=== PATIENT | female | born 1990 | race Caucasian/White ===

== ENCOUNTER 2018-06-04 14:56 | Emergency (ER) | payer OTHER ==
[~2018-06-04] VITALS: Ht 157.5 cm; Wt 56.7 kg
[2018-06-04 15:56] VITALS: BP 106/62
--- NOTE | 2018-06-04 16:17 | PHYS DOC ---
Past Medical History Past Medical History: No Pertinent History, Anxiety, Other Additional Past Medical Histor: " I am a cutter" , ptsd Past Surgical History: No Surgical History Alcohol Use: Occasionally Drug Use: Marijuana, Other Adult General Chief Complaint Chief Complaint: FOREIGN BODY VAGINA HPI HPI Patient is a 27 year old female with history of anxiety who presents today complaining of possible tampon stuck in the vagina. Patient states she placed the tampon in her vagina around 4 AM this morning. She states she woke up after that and removed a tampon string from her vagina but is not sure if she removed the entire tampon or not. Patient denies any other symptoms. Review of Systems Review of Systems Constitutional: Denies fever or chills [] GI: Possible tampon in the vagina. Denies abdominal pain, nausea, vomiting, bloody stools or diarrhea [] : Denies dysuria or hematuria [] Musculoskeletal: Denies back pain or joint pain [] Integument: Denies rash or skin lesions [] Neurologic: Denies headache, focal weakness or sensory changes [] All other systems were reviewed and found to be within normal limits, except as documented in this note. Allergies Allergies Allergies Coded Allergies Type Severity Reaction Last Updated Verified No Known Drug Allergies 10/07/13 No Physical Exam Physical Exam Constitutional: Well developed, well nourished, no acute distress, non-toxic appearance. [] Abdomen: Bowel sounds normal, soft, no tenderness, no masses, no pulsatile masses. [] Pelvic exam External pelvic appears normal, no foreign object noted in the vaginal vault, cervix wasn't visualized. No CMT. No adnexal tenderness, small amount of brownish drainage in the vaginal vault consistent with spotting. Patient states her menstrual cycle is supposed to start today Skin: Warm, dry, no erythema, no rash. [] Back: No tenderness, no CVA tenderness. [] Extremities: No tenderness, no cyanosis, no clubbing, ROM intact, no edema. [] Neurologic: Alert and oriented X 3, normal motor function, normal sensory function, no focal deficits noted. [] Psychologic: Affect normal, judgement normal, mood normal. [] Current Patient Data Vital Signs Vital Signs Date Time Temp Pulse Resp B/P (MAP) Pulse Ox O2 Delivery O2 Flow Rate FiO2 06/04/18 15:56 98.1 97 18 106/62 (77) 99 Room Air 98.1 EKG EKG [] Radiology/Procedures Radiology/Procedures [] Course & Med Decision Making Course & Med Decision Making Pertinent Labs and Imaging studies reviewed. (See chart for details) This is a 27-year-old female patient presented to the ED today concerned she could've left her tampon in her vagina. On physical exam no obvious tampon was noted. Patient is on her menstrual cycle. She was discharged to home. Instructed to follow-up with her own PCP or CARDIAC NURSE as needed. Dragon Disclaimer Dragon Disclaimer This electronic medical record was generated, in whole or in part, using a voice recognition dictation system. Departure Departure Impression: Primary Impression: Vaginal foreign body Disposition: HOME, SELF-CARE Condition: STABLE Referrals: NON,STAFF (PCP) LORI CAMPOS MD Follow-up in 1-2 weeks. Patient Instructions: Vaginal Foreign Body-Brief Additional Instructions: You were evaluated in the emergency room, we could not find any tampon in your vagina. You are currently no your menstrual cycle. Follow-up with your own doctor or CARDIAC NURSE as needed. Come back to the ED for any concerns. Problem Qualifiers Primary Impression: Vaginal foreign body Encounter type: initial encounter Qualified Codes: T19.2XXA - Foreign body in vulva and vagina, initial encounter HERNESTO PERES CLINICAL REIMBURSEMENT SPECIALIST Jun 04, 2018 16:17
== END 2018-06-04 16:38 | disposition home or self-care (01) ==
LOC: ER 14:56
DX: T19.2XXA Foreign body in vulva and vagina, initial encounter (principal); F43.10 Post-traumatic stress disorder, unspecified; X58.XXXA Exposure to other specified factors, initial encounter; Y93.89 Activity, other specified; Y92.89 Other specified places as the place of occurrence of the external cause; Y99.8 Other external cause status
CPT/HCPCS: 99283

== ENCOUNTER 2020-08-20 13:00 | Inpatient (IN) | payer MEDICAID, OTHER ==
[~2020-08-20] VITALS: Ht 154.9 cm; Wt 56.1 kg
[2020-08-20] MEDS ORDERED: IV NORMAL SALINE 1000ML BAG 1,000 ML IV SCH (13:30)
--- NOTE | 2020-08-20 13:41 | PHYS DOC ---
Past Medical History Past Medical History: Anxiety, Depression Past Surgical History: Other Additional Past Surgical Histo: D&C Smoking Status: Current Every Day Smoker Additional Information: 2-3 cigarettes daily Alcohol Use: None Drug Use: None General Adult EDM: Chief Complaint: MULTIPLE COMPLAINTS HPI: HPI: Patient is a 30 year old Female who presents with 1 week of sore throat but 2 d ays of generalized weakness, nasal congestion, nausea and chills. States she was around somebody who had Covid recently. She also complains of a rash to her rectum area that is been there for couple months. Patient has a history of anxiety, depression, 2 to 3 cigarettes, marijuana, D&C. Review of Systems: Review of Systems: Constitutional: + fever or chills. [] Eyes: Denies change in visual acuity. [] HENT: + nasal congestion or +sore throat. [] Respiratory: + cough or denies shortness of breath. [] Cardiovascular: +chest tightness, Denies chest pain or edema. [] GI: Denies abdominal pain, +nausea, +dry heaving , denies vomiting, bloody stools or diarrhea. [] : Denies dysuria. [] Musculoskeletal: Denies back pain or joint pain. +Generalized weakness[] Integument: +anal rash. [] Neurologic: Denies headache, focal weakness or sensory changes. [] Endocrine: Denies polyuria or polydipsia. [] Lymphatic: Denies swollen glands. [] Psychiatric: Denies depression or anxiety. [] Heart Score: Risk Factors: Risk Factors: DM, Current or recent (<one month) smoker, HTN, HLP, family history of CAD, obesity. Risk Scores: Score 0 - 3: 2.5% MACE over next 6 weeks - Discharge Home Score 4 - 6: 20.3% MACE over next 6 weeks - Admit for Clinical Observation Score 7 - 10: 72.7% MACE over next 6 weeks - Early Invasive Strategies Current Medications: Current Medications Medications (Trade) Dose Ordered Sig/Yash Start Time Stop Time Status Last Admin Dose Admin Sodium Chloride 1,000 ml @ 1,000 mls/hr Q1H 08/20/20 13:30 08/20/20 14:29 UNV Allergies: Allergies: Allergies Coded Allergies Type Severity Reaction Last Updated Verified No Known Drug Allergies 08/20/20 No Physical Exam: PE: Constitutional: Well developed, well nourished, no acute distress, non-toxic appearance. [] HENT: Normocephalic, atraumatic, bilateral external ears normal, oropharynx moist, no oral exudates, nose normal. [] Eyes: PERRLA, EOMI, conjunctiva normal, no discharge. [] Neck: Normal range of motion, no tenderness, supple, no stridor. [] Cardiovascular:Heart rate regular rhythm, no murmur [] Lungs & Thorax: Bilateral upper breath sounds clear and lower diminished to auscultation [] Abdomen: Bowel sounds normal, soft, no tenderness, no masses, no pulsatile masses. [] Skin: Warm, dry, no erythema, no rash. Anal warts[] Back: No tenderness, no CVA tenderness. [] Extremities: No tenderness, no cyanosis, no clubbing, ROM intact, no edema. [] Neurologic: Alert and oriented X 3, normal motor function, normal sensory function, no focal deficits noted. [] Psychologic: Affect normal, judgement normal, mood normal. [] Current Patient Data: Vital Signs: Vital Signs Date Time Temp Pulse Resp B/P (MAP) Pulse Ox O2 Delivery O2 Flow Rate FiO2 08/20/20 13:22 98.1 133 24 103/76 (85 100 Room Air 98.1 EKG: EK and read by Dr. Peraza as sinus tachycardia no STEMI [] Radiology/Procedures: Radiology/Procedures: [] Impression: [facility] [address] [place], [place] [id number] IMAGING REPORT Signed PATIENT: RAJI DE LOS SANTOS ACCOUNT: [id number] : 1990 LOCATION: ER AGE: 30 SEX: F EXAM STATUS: REG ER ORD. PHYSICIAN: RELL TILLMAN APRN REASON: PUI, COUGH, TACHYCARDIC, SOA PROCEDURE: PORTABLE CHEST 1V EXAM: Chest, single view. HISTORY: Cough. Tachycardia. COMPARISON: None. FINDINGS: A frontal view of the chest is obtained. There is no infiltrate, pleural effusion or pneumothorax. The heart is normal in size. IMPRESSION: No acute pulmonary finding. Electronically signed by: Demetra Cho MD (08/20/2020 2:01 PM) [facility] DICTATED and SIGNED BY: DEMETRA CHO MD DATE: 08/20/20 [id number] 0 Course & Med Decision Making: Course & Med Decision Making Pertinent Labs and Imaging studies reviewed. (See chart for details) COVID-19 CRITERIA: The patient was evaluated during the global COVID-19 pandemic, and that diagnosis was suspected/considered upon their initial presentation. Their evaluation, treatment and testing was consistent with current guidelines for patients who present with complaints or symptoms that may be related to COVID-19. See HPI. Patient's heart rate is 135 sinus tach. That she is afebrile. Patient states that she has had a couple bottles of water today. Lungs are clear in upper lobes and diminished in lower lobes. Speaks in full clear sentences. Patient has moderate anal warts bilaterally and around the anus. She states they are itchy and she sometimes has pain with having a bowel movement. She denies any blood in her stool. Patient denies abdominal pain, chest pain but she does have chest tightness, shortness of breath, headache, vision changes, numbness or tingling, abdominal pain, vomiting, diarrhea. UTI, sepsis, possible ovarian hemorrhage. She has been given Zosyn, 2 L of NS fluid. Patient admitted to Dr. Koroma. [] Emil Disclaimer: Emil Disclaimer: This electronic medical record was generated, in whole or in part, using a voice recognition dictation system. Date and Time of Reassessment Date: Aug 20, 2020 Time: 16:16 Fluid Challenge Is the fluid challenge complet: No IBW Target Volume Used: No BMI > 30: No Vital Signs Vital Signs: Vital Signs Date Time Temp Pulse Resp B/P (MAP) Pulse Ox O2 Delivery O2 Flow Rate FiO2 08/20/20 15:30 121 16 109/70 (83) 100 Room Air 08/20/20 13:22 98.1 98.1 Temperature Source: Oral Respirations Respiratory Effort: Normal Respiratory Pattern: Normal Cardiovascular Pulse Rhythm: Regular Heart: Nml rate, reg. rhythm Lung Sounds Breath Sounds: Clear Capillary Refil Capillary Refill: Rt Hand < 3 seconds Peripheral Pulse Pulse Location: Radial Pulse Strength: Normal (2+) Pulse Assessment Method: Monitor Integumentary Skin: Warm Skin Moisture: Dry Skin Turgor: Normal Skin Color: warm Fingernail Color: WNL COVID-19 Patient Risks: Age 65 or older: No Sign of co-morbidity: Yes Exp to person + for COVID: Yes Exp to PUI: No Travel from affected area: No Lower respiratory symptoms: Yes Fever: No Other: No PPE Use: Full PPE with N95 mask or PAPR: Yes Departure Departure Impression: Primary Impression: Person under investigation for COVID-19 Additional Impressions: Sepsis Qualified Codes: A41.9 - Sepsis, unspecified organism; R65.20 - Severe sepsis without septic shock UTI (urinary tract infection) Qualified Codes: N30.00 - Acute cystitis without hematuria Disposition: 09 ADMITTED INPT THIS HOSP Admitting Physician: KATHRYN Condition: STABLE Referrals: NO PCP (PCP) RELL TILLMAN APRN Aug 20, 2020 13:40
--- NOTE | 2020-08-20 14:07 | RAD ---
EXAM: Chest, single view. HISTORY: Cough. Tachycardia. COMPARISON: None. FINDINGS: A frontal view of the chest is obtained. There is no infiltrate, pleural effusion or pneumo thorax. The heart is normal in size. IMPRESSION: No acute pulmonary finding. Electronically signed by: Demetra Heath MD (08/20/2020 2:01 PM) [facility]
[2020-08-20 14:34] LABS: BASO % 0 % (0-3); EOS % 0 % (0-3); HEMATOCRIT 33.8 % (36.0-47.0); HEMOGLOBIN 10.9 g/dL (12.0-15.5); LYMPH # 0.5 x10^3/uL (1.0-4.8); LYMPH % 2 % (24-48); MEAN CORPUSCULAR HEMOGLOBIN 24 pg (25-35); MEAN CORPUSCULAR HGB CONC 32 g/dL (31-37); MEAN CORPUSCULAR VOLUME 75 fL (79-100); MONO # 0.4 x10^3/uL (0.0-1.1); MONO % 2 % (0-9); NEUT # 19.5 x10^3/uL (1.8-7.7); NEUT % 95 % (31-73); PLATELET COUNT 385 x10^3/uL (140-400); RED CELL DISTRIBUTION WIDTH 16.9 % (11.5-14.5); WHITE BLOOD COUNT 20.4 x10^3/uL (4.0-11.0)
[2020-08-20 14:36] LABS: BILIRUBIN,URINE NEGATIVE (NEG); CLARITY,URINE CLEAR; COLOR,URINE YELLOW; NITRITE,URINE POSITIVE (NEG); PROTEIN,URINE NEGATIVE (NEG-TRACE); UROBILINOGEN,URINE 0.2 mg/dL (0.2 mg/dL)
[2020-08-20 14:47] LABS: BACTERIA,URINE MANY /HPF (0-FEW); RBC,URINE 0 /HPF (0-2)
[2020-08-20 14:51] LABS: CREATININE 0.7 mg/dL (0.6-1.0); GFR 97.6; POTASSIUM 3.5 mmol/L (3.5-5.1)
[2020-08-20 14:57] LABS: ALBUMIN 3.5 g/dL (3.4-5.0); ALBUMIN/GLOBULIN RATIO 0.7 (1.0-1.7); TOTAL BILIRUBIN 1.1 mg/dL (0.2-1.0); TOTAL PROTEIN 8.2 g/dL (6.4-8.2)
[2020-08-20] MEDS ORDERED: IV NORMAL SALINE 1000ML BAG 1,000 ML IV ONE (15:00)
[2020-08-20] MEDS ORDERED: IOHEXOL 300 MG/ML 100ML VIAL. IV ONE (15:15)
[2020-08-20] MEDS ORDERED: CONTRAST GIVEN. MC PRN ×2 (15:15→16:15)
[2020-08-20] MEDS ORDERED: PIPERACILLIN/TAZOBACTAM 3.375 GM in IV NORMAL SALINE 50ML 50 ML IV ONE (15:30)
[2020-08-20 15:41] LABS: % BANDS 39 % (0-9); % LYMPHS 4 % (24-48); % MONOS 4 % (0-10); % MYELOS 1 % (0-0); % SEGS 52 % (35-66); ANISOCYTOSIS SLIGHT; HYPOCHROMIA SLIGHT; PLT ESTIMATE ADEQUATE (ADEQUATE); TOXIC VACUOLATION SLIGHT
[2020-08-20] MEDS ORDERED: IOHEXOL 350 MG/ML 100 ML VIAL. IV ONE (16:15)
--- NOTE | 2020-08-20 16:29 | RAD ---
EXAM: CT angiography of the chest, abdomen and pelvis with intravenous contrast. HISTORY: Pain. Fever and vomiting. TECHNIQUE: Computed tomographic images of the chest, abdomen and pelvis were obtained following the a dministration of intravenous contrast according to angiography protocol. Multiplanar reformatting was performed and three dimensional maximum intensity projection images were obtained. *One or more of the following individualized dose reduction techniques were utilized for this examina tion: 1. Automated exposure control. 2. Adjustment of the mA and/or kV according to patient size. 3. Use of iterative reconstruction technique. COMPARISON: None. FINDINGS: Chest: The heart is normal in size. The aorta is normal in caliber. There is no aortic diss ection. There is no pulmonary embolism. There is soft tissue within the anterior mediastinum due to r esidual thymus. There are prominent bilateral axillary lymph nodes. There are prominent bilateral hil ar lymph nodes. There is no pneumothorax or pleural effusion. There is no infiltrate or suspicious pu lmonary nodule. There is minimal peripheral atelectasis. There is no acute or suspicious osseous find ing. There is a severe chronic compression fracture of T8. Abdomen and pelvis: There is mild periportal edema, a finding which can be seen with rapid bolus ramila ent hydration. The gallbladder, pancreas, spleen, adrenal glands and stomach are unremarkable. There are small simple appearing renal cysts. There is no hydronephrosis. There is no appendicitis. There i s no bowel obstruction. There is no abnormal bowel wall thickening. The bladder is unremarkable. The uterus is unremarkable. There is a moderate amount of pelvic free fluid, the attenuation of which is greater than simple fluid and likely due to a component of hemorrhage. There is a 1.5 cm peripherally enhancing right ovarian follicular cyst, likely an involuting cyst. The superimposed on multiple nohemy ateral ovarian follicles. IMPRESSION: 1. Moderate pelvic free fluid, the attenuation of which is greater than simple fluid and likely due t o a component of hemorrhage. There is a suspected involuting 1.5 cm right ovarian follicular cyst. Th e possibility of a ruptured hemorrhagic cyst is not excluded. This can be better assessed with pelvic sonography. 2. Small simple appearing renal cysts. Follow up is not routinely recommended for simple cysts. Electronically signed by: Demetra Heath MD (08/20/2020 4:25 PM) [facility]
--- NOTE | 2020-08-20 18:00 | RAD ---
EXAM: Pelvic sonogram. HISTORY: Pelvic free fluid. Possible ruptured cyst. TECHNIQUE: Transabdominal sonographic imaging of the pelvis was performed. COMPARISON: CT obtained on the same date. FINDINGS: The uterus measures 8.0 x 5.4 x 4.3 cm. The endometrial stripe measures 7 mm. The left ovar y measures 4.9 x 3.8 x 3.4 cm. The right ovary measures 3.0 x 2.1 x 2.4 cm. There is a 4.2 cm left ov michelle cyst. There is moderate pelvic free fluid. IMPRESSION: 1. 4.2 cm left ovarian cyst. 2. Moderate pelvic free fluid. Electronically signed by: Demetra Heath MD (08/20/2020 5:46 PM) [facility]
--- NOTE | 2020-08-20 19:30 | HP ---
ADMIT DATE: 08/20/2020 CHIEF COMPLAINT: Sore throat, weakness, congestion, possible COVID exposure. 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 Basically, she has been having flu-like symptoms for the past several days. When we evaluated her here in the ER, it appears she has a UTI with sepsis. She has a white count of 20,000. Her urine is dirty. I discussed the case with the ER physician. We are going to admit the patient and treat her with IV antibiotics, IV fluids, consult Infectious Disease and rule out COVID-19. PAST MEDICAL HISTORY: Anxiety, depression, D and C, tobacco abuse. ALLERGIES: None. FAMILY HISTORY: Diabetes. SOCIAL HISTORY: She smokes a few cigarettes a day. 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 She does not drink or take drugs. MEDICATIONS: Reviewed, please refer to the MRAD. REVIEW OF SYSTEMS: GENERAL: She complains of weakness, she complains of chills. SKIN: No bruising, hair changes or rashes. EYES: No blurred, double or loss of vision. NOSE AND THROAT: She complains of nasal congestion. HEART: No history of palpitations, chest pain or shortness of breath on exertion. LUNGS: Denies cough, hemoptysis, wheezing or shortness of breath. GASTROINTESTINAL: She complains of nausea. GENITOURINARY: No history of frequency, urgency, hesitancy or nocturia. NEUROLOGIC: Denies history of numbness, tingling, tremor or weakness. PSYCHIATRIC: No history of panic, anxiety or depression. ENDOCRINE: No history of heat or cold intolerance, polyuria or polydipsia. EXTREMITIES: Denies muscle weakness, joint pain, pain on walking or stiffness. PHYSICAL EXAMINATION: VITAL SIGNS: Temperature is 98.1, pulse 130, respirations 24, blood pressure 103/76, O2 sats 100% on room air limits. GENERAL: No apparent distress. Alert and oriented. HEENT: Normal cephalic atraumatic, external auditory canals are patent. EYES: Extraocular muscles are intact, pupils are equally round and reactive to light and accommodation. MUSCULOSKELETAL: Well developed, well nourished, good range of motion. ENDOCRINE: No thyromegaly was palpated. LYMPHATICS: No cervical chain or axillary nodes were noted. HEMATOPOIETIC: No bruising. NECK: Supple, no JVD, no thyromegaly was noted. LUNGS: Clear to auscultation in all lung connolly without rhonchi or wheezing. HEART: RRR, S1, S2 present. Peripheral pulses intact, no obvious murmurs were noted. ABDOMEN: Soft, nontender. Positive bowel sounds no organomegaly, normal bowel sounds. EXTREMITIES: Without any cyanosis, clubbing, or edema. Pedal pulses intact, Homans sign is negative. NEUROLOGIC: Normal speech, normal tone. A & O x 3, moves all extremities, no obvious focal deficits. PSYCHIATRIC: Normal affect, normal mood. Stable. SKIN: No bruising, she has multiple skin lesions. She states this is chronic for her. VASCULAR: Good capillary refill, neurovascular bundle appears to be intact. LABORATORY DATA: White count is 20, hemoglobin 11, platelets 385. Electrolytes: Sodium 135. The other electrolytes are normal. D-dimer is high at 3.85. Urinalysis shows moderate leukocyte esterase and 1-4 white cells. IMAGING: Chest x-ray, no acute findings. CT of the abdomen and pelvis, 4.2 cm left ovarian cyst and moderate pelvic fluid. Also, there was moderate pelvic free fluid, the attenuation of which is greater than simple fluid and is likely due to a component of hemorrhage. ASSESSMENT AND PLAN: Sepsis, urinary tract infection, abnormal CT imaging of the abdomen and pelvis, leukocytosis, coagulopathy with a high D-dimer, anemia, hyponatremia. The patient will be admitted. We will start IV antibiotics. Consult Infectious Disease. Consult CLEAN UP SUPERVISOR. Trend labs. Rule out COVID-19. IV Zosyn, IV normal saline. Blood cultures. We have a Rapid Strep pending. Respiratory isolation until her COVID test comes back negative. ADARSH AGUILERA DO DR: LISA/sybil JOB#: [id number] / [id number]
[2020-08-20 20:30] VITALS: BP 112/74
[2020-08-20] MEDS ORDERED: diphenhydrAMINE HCL 25 MG CAPSULE PO PRN (21:45)
[2020-08-20] MEDS: ZOLPIDEM 5 MG TABLET. PO PRN (22:08)
[2020-08-20 23:59] VITALS: BP 109/55
[2020-08-21 03:14] VITALS: BP 103/50
--- NOTE | 2020-08-21 04:06 | EKG ---
[facility] [address] [place] [address] Test Date: 2020-08-20 Test Time: 13:13:06 Pat Name: RAJI DE LOS SANTOS Department: Room: [facility] Gender: F Car Trimmer: : 1990 Requested By: RELL TILLMAN Order Number: [id number] Reading MD: Neto Lloyd Measurements Intervals [place] Rate: 137 P: 22 FL: 98 QRS: 48 QRSD: 66 T: 39 QT: 284 QTc: 430 Interpretive Statements SINUS TACHYCARDIA Electronically Signed On 08-30-2020 14:43:40 [employer] by Neto Lloyd
[2020-08-21] MEDS ORDERED: VITS A & D/LANOLIN TOPICAL OINTMENT 42GM TUBE. TP PRN (05:00)
[2020-08-21 07:00] VITALS: BP 131/63
[2020-08-21] MEDS ORDERED: PIP/TAZO PER PHARMACY MC PRN (07:15)
--- NOTE | 2020-08-21 07:35 | PDOC ---
Infectious Disease Note Vital Sign Vital Signs Vital Signs Date Time Temp Pulse Resp B/P (MAP) Pulse Ox O2 Delivery O2 Flow Rate FiO2 08/21/20 03:14 97.9 105 18 103/50 (67) 98 Room Air 97.9 Labs Lab Laboratory Tests Test 08/20/20 13:29 08/20/20 14:10 08/20/20 14:20 Coronavirus (PCR) Not detected (Not Detected) Group A Streptococcus Rapid Negative (NEGATIVE) White Blood Count 20.4 x10^3/uL (4.0-11.0) Red Blood Count 4.50 x10^6/uL (3.50-5.40) Hemoglobin 10.9 g/dL (12.0-15.5) Hematocrit 33.8 % (36.0-47.0) Mean Corpuscular Volume 75 fL (79-100) Mean Corpuscular Hemoglobin 24 pg (25-35) Mean Corpuscular Hemoglobin Concent 32 g/dL (31-37) Red Cell Distribution Width 16.9 % (11.5-14.5) Platelet Count 385 x10^3/uL (140-400) Neutrophils (%) (Auto) 95 % (31-73) Lymphocytes (%) (Auto) 2 % (24-48) Monocytes (%) (Auto) 2 % (0-9) Eosinophils (%) (Auto) 0 % (0-3) Basophils (%) (Auto) 0 % (0-3) Neutrophils # (Auto) 19.5 x10^3/uL (1.8-7.7) Lymphocytes # (Auto) 0.5 x10^3/uL (1.0-4.8) Monocytes # (Auto) 0.4 x10^3/uL (0.0-1.1) Eosinophils # (Auto) 0.0 x10^3/uL (0.0-0.7) Basophils # (Auto) 0.0 x10^3/uL (0.0-0.2) Segmented Neutrophils % 52 % (35-66) Band Neutrophils % 39 % (0-9) Lymphocytes % 4 % (24-48) Monocytes % 4 % (0-10) Myelocytes % 1 % (0-0) Toxic Vacuolation Slight Platelet Estimate Adequate (ADEQUATE) Hypochromasia Slight Anisocytosis Slight D-Dimer (Maryam) 3.85 ug/mlFEU (0.00-0.50) Urine Collection Type Unknown Urine Color Yellow Urine Clarity Clear Urine pH 6.0 (<5.0-8.0) Urine Specific [place] 1.010 (1.000-1.030) Urine Protein Negative mg/dL (NEG-TRACE) Urine Glucose (UA) Negative mg/dL (NEG) Urine Ketones (Stick) Negative mg/dL (NEG) Urine Blood Negative (NEG) Urine Nitrite Positive (NEG) Urine Bilirubin Negative (NEG) Urine Urobilinogen Dipstick 0.2 mg/dL (0.2 mg/dL) Urine Leukocyte Esterase Moderate (NEG) Urine RBC 0 /HPF (0-2) Urine WBC 1-4 /HPF (0-4) Urine Squamous Epithelial Cells Mod /LPF Urine Bacteria Many /HPF (0-FEW) Urine Mucus Mod /LPF Sodium Level 135 mmol/L (136-145) Potassium Level 3.5 mmol/L (3.5-5.1) Chloride Level 103 mmol/L (98-107) Carbon Dioxide Level 22 mmol/L (21-32) Anion Gap 10 (6-14) Blood Urea Nitrogen 10 mg/dL (7-20) Creatinine 0.7 mg/dL (0.6-1.0) Estimated GFR (Cockcroft-Gault) 97.6 BUN/Creatinine Ratio 14 (6-20) Glucose Level 91 mg/dL (70-99) Calcium Level 9.0 mg/dL (8.5-10.1) Total Bilirubin 1.1 mg/dL (0.2-1.0) Aspartate Amino Transf (AST/SGOT) 22 U/L (15-37) Alanine Aminotransferase (ALT/SGPT) 19 U/L (14-59) Alkaline Phosphatase 76 U/L (46-116) Troponin I Quantitative < 0.017 ng/mL (0.000-0.055) Total Protein 8.2 g/dL (6.4-8.2) Albumin 3.5 g/dL (3.4-5.0) Albumin/Globulin Ratio 0.7 (1.0-1.7) Bedside Urine HCG, Qualitative Hcg negative (Negative) Objective Assessment leukocytosis Free pelvic fluid ? HPV lesions on rectal area - states has had HPV vaccine sore throat Plan Plan of Care GC Probe/syphilis/cbc CMp this am Cont zosyn Add Doxy Await DATA WAREHOUSING MANAGER eval F/u cults Consider HIV test based on above D/w nursing # [id number] EDDI MORALES MD Aug 21, 2020 07:35
[2020-08-21] MEDS ORDERED: INFLUENZA VAX SCREEN BY RX. MC PRN (09:00)
[2020-08-21] MEDS ORDERED: FLU VACC QS 2020-21(6MOS+)/PF 0.5 ML SYRINGE. VAX IM ONE (09:00)
[2020-08-21] MEDS: DOXYCYCLINE HYCLATE 100 MG TABLET PO SCH ×2 (09:28→19:21)
[2020-08-21] MEDS: PIPERACILLIN/TAZOBACTAM 3.375 GM in IV NORMAL SALINE 50ML 50 ML IV SCH ×3 (09:46→17:52)
[2020-08-21 11:00] VITALS: BP 113/59
--- NOTE | 2020-08-21 11:09 | PDOC ---
PROGRESS NOTES Date of Service: DATE: 08/21/20 TIME: 11:06 Chief Complaint Chief Complaint ASSESSMENT AND PLAN: Sepsis, urinary tract infection, abnormal CT imaging of the abdomen and pelvis, leukocytosis, coagulopathy with a high D-dimer, anemia, hyponatremia. 4.2 cm left ovarian cyst. Moderate pelvic free fluid, the attenuation of which is greater than simple fluid and likely due to a component of hemorrhage. There is a suspected involuting 1.5 cm right ovarian follicular cyst. The possibility of a ruptured hemorrhagic cyst GC Probe/syphilis/cbc comp 08-21 Cont iv zosyn Add Doxy APPEALS RN eval HIV test PLAN admitted. IV antibiotics. Consult Infectious Disease. Consult PROJECT CONTROL MANAGER. , PATRICK-ANAL CONDYLOMA Trend labs. Rule out COVID-19. IV Zosyn, IV normal saline. Blood cultures. Rapid Strep pending. Respiratory isolation History of Present Illness History of Present Illness CHIEF COMPLAINT: Sore throat, weakness, congestion, possible COVID exposure. 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 she has been having flu-like symptoms for the past several days. appears she has a UTI with sepsis. She has a white count of 20,000. PYURIA NOTED. admit IV antibiotics, IV fluids, consult Infectious Disease PUI rule out COVID-19. PAST MEDICAL HISTORY: Anxiety, depression, D and C, tobacco abuse. ALLERGIES: None. FAMILY HISTORY: Diabetes. SOCIAL HISTORY: She smokes a few cigarettes a day. 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 She does not drink or take drugs. MEDICATIONS: Reviewed, please refer to the MRAD. REVIEW OF SYSTEMS: GENERAL: She complains of weakness, she complains of chills. SKIN: No bruising, hair changes or rashes. EYES: No blurred, double or loss of vision. NOSE AND THROAT: She complains of nasal congestion. HEART: No history of palpitations, chest pain or shortness of breath on exertion. LUNGS: Denies cough, hemoptysis, wheezing or shortness of breath. GASTROINTESTINAL: She complains of nausea. RECTAL PAIN GENITOURINARY: No history of frequency, urgency, hesitancy or nocturia. NEUROLOGIC: Denies history of numbness, tingling, tremor or weakness. PSYCHIATRIC: No history of panic, anxiety or depression. ENDOCRINE: No history of heat or cold intolerance, polyuria or polydipsia. EXTREMITIES: Denies muscle weakness, joint pain, pain on walking or stiffness. Vitals Vitals Vital Signs Date Time Temp Pulse Resp B/P (MAP) Pulse Ox O2 Delivery O2 Flow Rate FiO2 08/21/20 08:30 Room Air 08/21/20 07:00 97.0 116 14 131/63 (85) 99 97.0 Physical Exam Physical Exam GENERAL: No apparent distress. Alert and oriented. HEENT: Normal cephalic atraumatic, external auditory canals are patent. EYES: Extraocular muscles are intact, pupils are equally round and reactive to light and accommodation. MUSCULOSKELETAL: Well developed, well nourished, good range of motion. ENDOCRINE: No thyromegaly was palpated. LYMPHATICS: No cervical chain or axillary nodes were noted. HEMATOPOIETIC: No bruising. NECK: Supple, no JVD, no thyromegaly was noted. LUNGS: Clear to auscultation in all lung connolly without rhonchi or wheezing. HEART: RRR, S1, S2 present. Peripheral pulses intact, no obvious murmurs were noted. ABDOMEN: Soft, nontender. Positive bowel sounds no organomegaly, normal bowel sounds. EXTREMITIES: Without any cyanosis, clubbing, or edema. Pedal pulses intact, Homans sign is negative. NEUROLOGIC: Normal speech, normal tone. A & O x 3, moves all extremities, no obvious focal deficits. PSYCHIATRIC: Normal affect, normal mood. Stable. SKIN: No bruising, she has multiple skin lesions. She states this is chronic for her. VASCULAR: Good capillary refill, neurovascular bundle appears to be intact. General: Alert, Oriented X3, Cooperative, No acute distress Heart: Regular rate Lungs: Clear Abdomen: No tenderness Extremities: No cyanosis Labs LABS EXAM: Pelvic sonogram. HISTORY: Pelvic free fluid. Possible ruptured cyst. TECHNIQUE: Transabdominal sonographic imaging of the pelvis was performed. COMPARISON: CT obtained on the same date. FINDINGS: The uterus measures 8.0 x 5.4 x 4.3 cm. The endometrial stripe measures 7 mm. The left ovary measures 4.9 x 3.8 x 3.4 cm. The right ovary measures 3.0 x 2.1 x 2.4 cm. There is a 4.2 cm left ovarian cyst. There is moderate pelvic free fluid. IMPRESSION: 1. 4.2 cm left ovarian cyst. 2. Moderate pelvic free fluid. Electronically signed by: Demetra Heath MD (08/20/2020 5:46 PM) [facility] EXAM: CT angiography of the chest, abdomen and pelvis with intravenous contrast. HISTORY: Pain. Fever and vomiting. TECHNIQUE: Computed tomographic images of the chest, abdomen and pelvis were obtained following the administration of intravenous contrast according to angiography protocol. Multiplanar reformatting was performed and three dimensional maximum intensity projection images were obtained. *One or more of the following individualized dose reduction techniques were utilized for this examination: 1. Automated exposure control. 2. Adjustment of the mA and/or kV according to patient size. 3. Use of iterative reconstruction technique. COMPARISON: None. FINDINGS: Chest: The heart is normal in size. The aorta is normal in caliber. There is no aortic dissection. There is no pulmonary embolism. There is soft tissue within the anterior mediastinum due to residual thymus. There are prominent bilateral axillary lymph nodes. There are prominent bilateral hilar lymph nodes. There is no pneumothorax or pleural effusion. There is no infiltrate or suspicious pulmonary nodule. There is minimal peripheral atelectasis. There is no acute or suspicious osseous finding. There is a severe chronic compression fracture of T8. Abdomen and pelvis: There is mild periportal edema, a finding which can be seen with rapid bolus patient hydration. The gallbladder, pancreas, spleen, adrenal glands and stomach are unremarkable. There are small simple appearing renal cyst s. There is no hydronephrosis. There is no appendicitis. There is no bowel obstruction. There is no abnormal bowel wall thickening. The bladder is unremarkable. The uterus is unremarkable. There is a moderate amount of pelvic free fluid, the attenuation of which is greater than simple fluid and likely due to a component of hemorrhage. There is a 1.5 cm peripherally enhancing right ovarian follicular cyst, likely an involuting cyst. The superimposed on multiple bilateral ovarian follicles. IMPRESSION: 1. Moderate pelvic free fluid, the attenuation of which is greater than simple fluid and likely due to a component of hemorrhage. There is a suspected involuting 1.5 cm right ovarian follicular cyst. The possibility of a ruptured hemorrhagic cyst is not excluded. This can be better assessed with pelvic sonography. 2. Small simple appearing renal cysts. Follow up is not routinely recommended for simple cysts. Electronically signed by: Demetra Heath MD (08/20/2020 4:25 PM) [facility] DICTATED and SIGNED BY: DEMETRA HEATH MD Laboratory Tests Test 08/20/20 13:29 08/20/20 14:10 08/20/20 14:20 Coronavirus (PCR) Not detected (Not Detected) Group A Streptococcus Rapid Negative (NEGATIVE) White Blood Count 20.4 x10^3/uL (4.0-11.0) Red Blood Count 4.50 x10^6/uL (3.50-5.40) Hemoglobin 10.9 g/dL (12.0-15.5) Hematocrit 33.8 % (36.0-47.0) Mean Corpuscular Volume 75 fL (79-100) Mean Corpuscular Hemoglobin 24 pg (25-35) Mean Corpuscular Hemoglobin Concent 32 g/dL (31-37) Red Cell Distribution Width 16.9 % (11.5-14.5) Platelet Count 385 x10^3/uL (140-400) Neutrophils (%) (Auto) 95 % (31-73) Lymphocytes (%) (Auto) 2 % (24-48) Monocytes (%) (Auto) 2 % (0-9) Eosinophils (%) (Auto) 0 % (0-3) Basophils (%) (Auto) 0 % (0-3) Neutrophils # (Auto) 19.5 x10^3/uL (1.8-7.7) Lymphocytes # (Auto) 0.5 x10^3/uL (1.0-4.8) Monocytes # (Auto) 0.4 x10^3/uL (0.0-1.1) Eosinophils # (Auto) 0.0 x10^3/uL (0.0-0.7) Basophils # (Auto) 0.0 x10^3/uL (0.0-0.2) Segmented Neutrophils % 52 % (35-66) Band Neutrophils % 39 % (0-9) Lymphocytes % 4 % (24-48) Monocytes % 4 % (0-10) Myelocytes % 1 % (0-0) Toxic Vacuolation Slight Platelet Estimate Adequate (ADEQUATE) Hypochromasia Slight Anisocytosis Slight D-Dimer (Maryam) 3.85 ug/mlFEU (0.00-0.50) Urine Collection Type Unknown Urine Color Yellow Urine Clarity Clear Urine pH 6.0 (<5.0-8.0) Urine Specific [place] 1.010 (1.000-1.030) Urine Protein Negative mg/dL (NEG-TRACE) Urine Glucose (UA) Negative mg/dL (NEG) Urine Ketones (Stick) Negative mg/dL (NEG) Urine Blood Negative (NEG) Urine Nitrite Positive (NEG) Urine Bilirubin Negative (NEG) Urine Urobilinogen Dipstick 0.2 mg/dL (0.2 mg/dL) Urine Leukocyte Esterase Moderate (NEG) Urine RBC 0 /HPF (0-2) Urine WBC 1-4 /HPF (0-4) Urine Squamous Epithelial Cells Mod /LPF Urine Bacteria Many /HPF (0-FEW) Urine Mucus Mod /LPF Sodium Level 135 mmol/L (136-145) Potassium Level 3.5 mmol/L (3.5-5.1) Chloride Level 103 mmol/L (98-107) Carbon Dioxide Level 22 mmol/L (21-32) Anion Gap 10 (6-14) Blood Urea Nitrogen 10 mg/dL (7-20) Creatinine 0.7 mg/dL (0.6-1.0) Estimated GFR (Cockcroft-Gault) 97.6 BUN/Creatinine Ratio 14 (6-20) Glucose Level 91 mg/dL (70-99) Calcium Level 9.0 mg/dL (8.5-10.1) Total Bilirubin 1.1 mg/dL (0.2-1.0) Aspartate Amino Transf (AST/SGOT) 22 U/L (15-37) Alanine Aminotransferase (ALT/SGPT) 19 U/L (14-59) Alkaline Phosphatase 76 U/L (46-116) Troponin I Quantitative < 0.017 ng/mL (0.000-0.055) Total Protein 8.2 g/dL (6.4-8.2) Albumin 3.5 g/dL (3.4-5.0) Albumin/Globulin Ratio 0.7 (1.0-1.7) Bedside Urine HCG, Qualitative Hcg negative (Negative) Assessment and Plan Assessmemt and Plan Problems Medical Problems: (1) Person under investigation for COVID-19 Status: Acute (2) Sepsis Status: Acute (3) UTI (urinary tract infection) Status: Acute Comment Review of Relevant I have reviewed the following items nell (where applicable) has been applied. Labs Laboratory Tests Test 08/20/20 13:29 08/20/20 14:10 08/20/20 14:20 Coronavirus (PCR) Not detected (Not Detected) Group A Streptococcus Rapid Negative (NEGATIVE) White Blood Count 20.4 x10^3/uL (4.0-11.0) Red Blood Count 4.50 x10^6/uL (3.50-5.40) Hemoglobin 10.9 g/dL (12.0-15.5) Hematocrit 33.8 % (36.0-47.0) Mean Corpuscular Volume 75 fL (79-100) Mean Corpuscular Hemoglobin 24 pg (25-35) Mean Corpuscular Hemoglobin Concent 32 g/dL (31-37) Red Cell Distribution Width 16.9 % (11.5-14.5) Platelet Count 385 x10^3/uL (140-400) Neutrophils (%) (Auto) 95 % (31-73) Lymphocytes (%) (Auto) 2 % (24-48) Monocytes (%) (Auto) 2 % (0-9) Eosinophils (%) (Auto) 0 % (0-3) Basophils (%) (Auto) 0 % (0-3) Neutrophils # (Auto) 19.5 x10^3/uL (1.8-7.7) Lymphocytes # (Auto) 0.5 x10^3/uL (1.0-4.8) Monocytes # (Auto) 0.4 x10^3/uL (0.0-1.1) Eosinophils # (Auto) 0.0 x10^3/uL (0.0-0.7) Basophils # (Auto) 0.0 x10^3/uL (0.0-0.2) Segmented Neutrophils % 52 % (35-66) Band Neutrophils % 39 % (0-9) Lymphocytes % 4 % (24-48) Monocytes % 4 % (0-10) Myelocytes % 1 % (0-0) Toxic Vacuolation Slight Platelet Estimate Adequate (ADEQUATE) Hypochromasia Slight Anisocytosis Slight D-Dimer (Maryam) 3.85 ug/mlFEU (0.00-0.50) Urine Collection Type Unknown Urine Color Yellow Urine Clarity Clear Urine pH 6.0 (<5.0-8.0) Urine Specific [place] 1.010 (1.000-1.030) Urine Protein Negative mg/dL (NEG-TRACE) Urine Glucose (UA) Negative mg/dL (NEG) Urine Ketones (Stick) Negative mg/dL (NEG) Urine Blood Negative (NEG) Urine Nitrite Positive (NEG) Urine Bilirubin Negative (NEG) Urine Urobilinogen Dipstick 0.2 mg/dL (0.2 mg/dL) Urine Leukocyte Esterase Moderate (NEG) Urine RBC 0 /HPF (0-2) Urine WBC 1-4 /HPF (0-4) Urine Squamous Epithelial Cells Mod /LPF Urine Bacteria Many /HPF (0-FEW) Urine Mucus Mod /LPF Sodium Level 135 mmol/L (136-145) Potassium Level 3.5 mmol/L (3.5-5.1) Chloride Level 103 mmol/L (98-107) Carbon Dioxide Level 22 mmol/L (21-32) Anion Gap 10 (6-14) Blood Urea Nitrogen 10 mg/dL (7-20) Creatinine 0.7 mg/dL (0.6-1.0) Estimated GFR (Cockcroft-Gault) 97.6 BUN/Creatinine Ratio 14 (6-20) Glucose Level 91 mg/dL (70-99) Calcium Level 9.0 mg/dL (8.5-10.1) Total Bilirubin 1.1 mg/dL (0.2-1.0) Aspartate Amino Transf (AST/SGOT) 22 U/L (15-37) Alanine Aminotransferase (ALT/SGPT) 19 U/L (14-59) Alkaline Phosphatase 76 U/L (46-116) Troponin I Quantitative < 0.017 ng/mL (0.000-0.055) Total Protein 8.2 g/dL (6.4-8.2) Albumin 3.5 g/dL (3.4-5.0) Albumin/Globulin Ratio 0.7 (1.0-1.7) Bedside Urine HCG, Qualitative Hcg negative (Negative) Laboratory Tests Test 08/20/20 13:29 08/20/20 14:10 08/20/20 14:20 Coronavirus (PCR) Not detected (Not Detected) Group A Streptococcus Rapid Negative (NEGATIVE) White Blood Count 20.4 x10^3/uL (4.0-11.0) Red Blood Count 4.50 x10^6/uL (3.50-5.40) Hemoglobin 10.9 g/dL (12.0-15.5) Hematocrit 33.8 % (36.0-47.0) Mean Corpuscular Volume 75 fL (79-100) Mean Corpuscular Hemoglobin 24 pg (25-35) Mean Corpuscular Hemoglobin Concent 32 g/dL (31-37) Red Cell Distribution Width 16.9 % (11.5-14.5) Platelet Count 385 x10^3/uL (140-400) Neutrophils (%) (Auto) 95 % (31-73) Lymphocytes (%) (Auto) 2 % (24-48) Monocytes (%) (Auto) 2 % (0-9) Eosinophils (%) (Auto) 0 % (0-3) Basophils (%) (Auto) 0 % (0-3) Neutrophils # (Auto) 19.5 x10^3/uL (1.8-7.7) Lymphocytes # (Auto) 0.5 x10^3/uL (1.0-4.8) Monocytes # (Auto) 0.4 x10^3/uL (0.0-1.1) Eosinophils # (Auto) 0.0 x10^3/uL (0.0-0.7) Basophils # (Auto) 0.0 x10^3/uL (0.0-0.2) Segmented Neutrophils % 52 % (35-66) Band Neutrophils % 39 % (0-9) Lymphocytes % 4 % (24-48) Monocytes % 4 % (0-10) Myelocytes % 1 % (0-0) Toxic Vacuolation Slight Platelet Estimate Adequate (ADEQUATE) Hypochromasia Slight Anisocytosis Slight D-Dimer (Maryam) 3.85 ug/mlFEU (0.00-0.50) Urine Collection Type Unknown Urine Color Yellow Urine Clarity Clear Urine pH 6.0 (<5.0-8.0) Urine Specific [place] 1.010 (1.000-1.030) Urine Protein Negative mg/dL (NEG-TRACE) Urine Glucose (UA) Negative mg/dL (NEG) Urine Ketones (Stick) Negative mg/dL (NEG) Urine Blood Negative (NEG) Urine Nitrite Positive (NEG) Urine Bilirubin Negative (NEG) Urine Urobilinogen Dipstick 0.2 mg/dL (0.2 mg/dL) Urine Leukocyte Esterase Moderate (NEG) Urine RBC 0 /HPF (0-2) Urine WBC 1-4 /HPF (0-4) Urine Squamous Epithelial Cells Mod /LPF Urine Bacteria Many /HPF (0-FEW) Urine Mucus Mod /LPF Sodium Level 135 mmol/L (136-145) Potassium Level 3.5 mmol/L (3.5-5.1) Chloride Level 103 mmol/L (98-107) Carbon Dioxide Level 22 mmol/L (21-32) Anion Gap 10 (6-14) Blood Urea Nitrogen 10 mg/dL (7-20) Creatinine 0.7 mg/dL (0.6-1.0) Estimated GFR (Cockcroft-Gault) 97.6 BUN/Creatinine Ratio 14 (6-20) Glucose Level 91 mg/dL (70-99) Calcium Level 9.0 mg/dL (8.5-10.1) Total Bilirubin 1.1 mg/dL (0.2-1.0) Aspartate Amino Transf (AST/SGOT) 22 U/L (15-37) Alanine Aminotransferase (ALT/SGPT) 19 U/L (14-59) Alkaline Phosphatase 76 U/L (46-116) Troponin I Quantitative < 0.017 ng/mL (0.000-0.055) Total Protein 8.2 g/dL (6.4-8.2) Albumin 3.5 g/dL (3.4-5.0) Albumin/Globulin Ratio 0.7 (1.0-1.7) Bedside Urine HCG, Qualitative Hcg negative (Negative) Medications Current Medications Sodium Chloride 1,000 ml @ 1,000 mls/hr Q1H IV Last administered on 08/20/20at 14:15; Start 08/20/20 at 13:30; Stop 08/20/20 at 14:29; Status DC Sodium Chloride 1,000 ml @ 1,000 mls/hr 1X ONCE IV Last administered on 08/20/20at 15:26; Start 08/20/20 at 15:00; Stop 08/20/20 at 15:59; Status DC Iohexol (Omnipaque 300 Mg/ml) 75 ml 1X ONCE IV ; Start 08/20/20 at 15:15; Stop 08/20/20 at 15:16; Status DC Info (CONTRAST GIVEN -- Rx MONITORING) 1 each PRN DAILY PRN MC SEE COMMENTS; Start 08/20/20 at 15:15; Stop 08/22/20 at 15:14 Piperacillin Sod/ Tazobactam Sod 3.375 gm/Sodium Chloride 50 ml @ 100 mls/hr 1X ONCE IV Last administered on 08/20/20at 15:29; Start 08/20/20 at 15:30; Stop 08/20/20 at 15:59; Status DC Iohexol (Omnipaque 350 Mg/ml) 75 ml 1X ONCE IV Last administered on 08/20/20at 16:16; Start 08/20/20 at 16:15; Stop 08/20/20 at 16:16; Status DC Info (CONTRAST GIVEN -- Rx MONITORING) 1 each PRN DAILY PRN MC SEE COMMENTS; Start 08/20/20 at 16:15; Stop 08/22/20 at 16:14 Zolpidem Tartrate (Ambien) 5 mg PRN QHS PRN PO INSOMNIA, MAY REPEAT X1 Last administered on 08/20/20at 22:08; Start 08/20/20 at 21:45 Diphenhydramine HCl (Benadryl) 25 mg PRN Q6HRS PRN PO ITCHING; Start 08/20/20 at 21:45 Vitamin A/Vitamin D (Vitamin A & D Ointment) 1 kemal PRN Q1HR PRN TP SKIN PROTECTION Last administered on 08/21/20at 05:08; Start 08/21/20 at 05:00 Influenza Virus Vaccine Quadrival (Fluzone Quad Syringe) 0.5 ml ONCE ONCE VAX IM Last administered on 08/21/20at 09:47; Start 08/21/20 at 09:00; Stop 08/21/20 at 09:01; Status DC Info (FLU VACCINE SCREEN per RX) 1 each PRN 1X PRN MC SEE COMMENTS; Start 08/21/20 at 09:00; Status UNV Doxycycline Hyclate (Vibra-Tab) 100 mg BID PO Last administered on 08/21/20at 09:28; Start 08/21/20 at 09:00 Piperacillin Sod/ Tazobactam Sod (Zosyn Per Pharmacy) 1 each PRN DAILY PRN MC SEE COMMENTS; Start 08/21/20 at 07:15 Piperacillin Sod/ Tazobactam Sod 3.375 gm/Sodium Chloride 50 ml @ 100 mls/hr Q6HRS IV Last administered on 08/21/20at 09:46; Start 08/21/20 at 08:00 Vitals/I & O Vital Sign - Last 24 Hours 08/20/20 08/20/20 08/20/20 08/20/20 13:17 13:22 14:02 14:32 Temp 98.1 98.1 Pulse 128 133 124 124 Resp 24 B/P (MAP) 103/76 (85) 103/76 (85) 116/74 (88) 116/77 (90) Pulse Ox 98 100 98 98 O2 Delivery Room Air Room Air Room Air Room Air 08/20/20 08/20/20 08/20/20 08/20/20 15:02 15:22 15:30 16:07 Pulse 120 114 121 122 Resp 16 B/P (MAP) 110/72 (85) 111/67 (82) 109/70 (83) 113/66 (82) Pulse Ox 100 100 100 96 O2 Delivery Room Air Room Air Room Air Room Air 08/20/20 08/20/20 08/20/20 08/20/20 17:15 18:15 20:30 20:30 Temp 98.5 98.5 Pulse 114 107 110 Resp 18 B/P (MAP) 106/63 (77) 115/69 (84) 112/74 (87) Pulse Ox 96 100 100 O2 Delivery Room Air Room Air Room Air Room Air 08/20/20 08/21/20 08/21/20 08/21/20 23:59 03:14 07:00 08:30 Temp 98.3 97.9 97.0 98.3 97.9 97.0 Pulse 110 105 116 Resp 20 18 14 B/P (MAP) 109/55 (73) 103/50 (67) 131/63 (85) Pulse Ox 98 98 99 O2 Delivery Room Air Room Air Room Air Room Air Intake and Output 08/20/20 08/20/20 08/21/20 15:00 23:00 07:00 Intake Total 2050 ml 120 ml Balance 2050 ml 120 ml Justicifation of Admission Dx: Justifications for Admission: Justification of Admission Dx: No Comments: RUPTURED OVARIAN CYST, CONDYLOMA CARL WEAVER MD Aug 21, 2020 11:09
--- NOTE | 2020-08-21 11:12 | CONS ---
DATE OF CONSULTATION: 08/21/2020 LOCATION: The patient is in room 668. REQUESTING PHYSICIAN: Dr. Koroma. REASON FOR CONSULTATION: Questionable sepsis. HISTORY OF PRESENT ILLNESS: The patient is a 30-year-old female without significant past medical history who [place], near [place], who came to the [place] 2 days ago to visit. She has a history of some anxiety and depression. Yesterday, she states she was in the bathroom, had sudden onset of feeling faint. She had nausea and she felt like she was having fevers and some chills. She has had a sore throat for a week and only took some ibuprofen and presented to [facility] Emergency Room. She has not been febrile. Blood pressures have been stable. Urinalysis was collected. It looks like it is contaminated specimen. White count was 20, but she had 39% bands. Her COVID test is negative. Group A strep was negative. She underwent a chest x-ray, which showed no acute pulmonary findings. A chest, abdomen and pelvis CT showed moderate pelvic free fluid attenuation of which is greater, simple fluid, likely due to compartment of hemorrhage, suspecting right ovarian follicular cysts. She then underwent a transvaginal ultrasound showed a 4.2 cm left ovarian cyst and moderate pelvic free fluid. She was given a dose of Zosyn and admitted to the hospital. Currently, she is lying in bed. She is feeling somewhat better. No gross headaches, has occasional cough. She denies any dysuria, no frequency. Denies any abnormal vaginal discharge, but was concerned about a potential yeast infection at some point and also states she has had some abnormal lesions around her rectal area. PAST MEDICAL HISTORY: Positive for anxiety, depression, D and C, tobacco abuse, history of gonorrhea at age 21. States she has had the HPV vaccine. REVIEW OF SYSTEMS: Otherwise negative. ALLERGIES: No known drug allergies. SOCIAL HISTORY: She is a smoker. 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 She does use marijuana. She does not use any other substances. She has a dog at home and has been with the same partner for the past 6 months, but she is sexually active. FAMILY HISTORY: Positive for diabetes. CURRENT MEDICATIONS: Include Zosyn x 1, Benadryl, flu shot. Other meds are available and reviewed in the chart. PHYSICAL EXAMINATION: VITAL SIGNS: She is afebrile, temperature 97.9, pulse 105, respiratory rate 18, blood pressure 103/50, satting 98% on room air. CONSTITUTIONAL: She is lying down. She is comfortable. She is in no acute distress. She was sleeping on arrival. HEENT: Pupils equal and reactive. She has normal conjunctivae. Oral cavity, pharynx was clear. No signs of thrush or erythema. NECK: Supple. Good range of motion. LUNGS: Clear to auscultation bilaterally. HEART: S1, S2. ABDOMEN: Soft, flat, nondistended. EXTREMITIES: Without clubbing, cyanosis or gross edema. GENITOURINARY: Vaginal area without significant swelling. There is no gross drainage about her rectal area. She has got circumferential plaque-like lesions around her anal area. NEUROLOGIC: She is nonfocal, moves all extremities. SKIN: Without generalized signs of rash. She does have some scabs scattered throughout. NEUROLOGIC: She is nonfocal, moves all extremities. PSYCHIATRIC: Affect is appropriate. LABORATORY VALUES: White count 20.4, hemoglobin 10.9, platelets of 385 with 39 bands, 52 segs. Creatinine 0.7. Normal liver function study tests, although her total bilirubin was mildly elevated at 1.1. Urinalysis again looks consistent with contamination. RADIOLOGY: Reviewed in history of present illness. IMPRESSION: 1. Leukocytosis. 2. Free pelvic fluid. 3. Questionable HPV lesions on rectal area. States she had a HPV vaccine. 4. Sore throat. RECOMMENDATIONS: We will check a GC probe, also check syphilis, CBC, CMP this morning. Continue Zosyn, add doxycycline, await RESEARCH AND DEVELOPMENT CHEMIST evaluation. We will follow up on cultures. Consider HIV test based on above. This was discussed with nursing. Thank you for the patient's care. Should you have any questions, please do not hesitate to contact me. EDDI MORALES MD DR: EMIGDIO/sybil JOB#: [id number] / [id number] RUSSELL
[2020-08-21 11:31] LABS: BASO # 0.1 x10^3/uL (0.0-0.2); BASO % 0 % (0-3); EOS # 0.3 x10^3/uL (0.0-0.7); EOS % 2 % (0-3); HEMATOCRIT 31.2 % (36.0-47.0); LYMPH # 1.8 x10^3/uL (1.0-4.8); LYMPH % 11 % (24-48); MEAN CORPUSCULAR HEMOGLOBIN 24 pg (25-35); MEAN CORPUSCULAR HGB CONC 32 g/dL (31-37); MEAN CORPUSCULAR VOLUME 75 fL (79-100); MONO # 0.7 x10^3/uL (0.0-1.1); MONO % 4 % (0-9); NEUT # 13.3 x10^3/uL (1.8-7.7); NEUT % 83 % (31-73); PLATELET COUNT 364 x10^3/uL (140-400); RED BLOOD COUNT 4.13 x10^6/uL (3.50-5.40); RED CELL DISTRIBUTION WIDTH 17.1 % (11.5-14.5); WHITE BLOOD COUNT 16.2 x10^3/uL (4.0-11.0)
[2020-08-21 11:50] LABS: ALBUMIN 3.4 g/dL (3.4-5.0); ALBUMIN/GLOBULIN RATIO 0.7 (1.0-1.7); CALCIUM 8.9 mg/dL (8.5-10.1); CREATININE 0.7 mg/dL (0.6-1.0); GFR 97.6; POTASSIUM 3.7 mmol/L (3.5-5.1); TOTAL BILIRUBIN 0.6 mg/dL (0.2-1.0); TOTAL PROTEIN 8.3 g/dL (6.4-8.2)
--- NOTE | 2020-08-21 13:04 | PDOC2 ---
CONSULT Date of Consult Date of Consult DATE: 08/21/20 TIME: 12:58 Reason for Consult Reason for Consult: Ovarian cyst Referring Physician Referring Physician: Dr. Koroma Identification/Chief Complaint Chief Complaint lower abd cramping and perineal pain Source Source: Chart review, Patient History of Present Illness Reason for Visit: 30 y/o presented with lower abd pain, dysuria and perineal pain for past couple days. She was admitted for complicated UTI and ovarian cyst. Pelvic sono indicated ruptured hemorrhagic cyst and PERICO cyst 4 cm size. Hgb is stable and patient abd pain resolved. Past Surgical History Past Surgical History: Other (D&C) Current Problem List Problem List Problems Medical Problems: (1) Person under investigation for COVID-19 Status: Acute (2) Sepsis Status: Acute (3) UTI (urinary tract infection) Status: Acute Current Medications Current Medications Current Medications Sodium Chloride 1,000 ml @ 1,000 mls/hr Q1H IV Last administered on 08/20/20at 14:15; Start 08/20/20 at 13:30; Stop 08/20/20 at 14:29; Status DC Sodium Chloride 1,000 ml @ 1,000 mls/hr 1X ONCE IV Last administered on 08/20/20at 15:26; Start 08/20/20 at 15:00; Stop 08/20/20 at 15:59; Status DC Iohexol (Omnipaque 300 Mg/ml) 75 ml 1X ONCE IV ; Start 08/20/20 at 15:15; Stop 08/20/20 at 15:16; Status DC Info (CONTRAST GIVEN -- Rx MONITORING) 1 each PRN DAILY PRN MC SEE COMMENTS; Start 08/20/20 at 15:15; Stop 08/22/20 at 15:14 Piperacillin Sod/ Tazobactam Sod 3.375 gm/Sodium Chloride 50 ml @ 100 mls/hr 1X ONCE IV Last administered on 08/20/20at 15:29; Start 08/20/20 at 15:30; Stop 08/20/20 at 15:59; Status DC Iohexol (Omnipaque 350 Mg/ml) 75 ml 1X ONCE IV Last administered on 08/20/20at 16:16; Start 08/20/20 at 16:15; Stop 08/20/20 at 16:16; Status DC Info (CONTRAST GIVEN -- Rx MONITORING) 1 each PRN DAILY PRN MC SEE COMMENTS; Start 08/20/20 at 16:15; Stop 08/22/20 at 16:14 Zolpidem Tartrate (Ambien) 5 mg PRN QHS PRN PO INSOMNIA, MAY REPEAT X1 Last administered on 08/20/20at 22:08; Start 08/20/20 at 21:45 Diphenhydramine HCl (Benadryl) 25 mg PRN Q6HRS PRN PO ITCHING; Start 08/20/20 at 21:45 Vitamin A/Vitamin D (Vitamin A & D Ointment) 1 kemal PRN Q1HR PRN TP SKIN PROTECTION Last administered on 08/21/20at 05:08; Start 08/21/20 at 05:00 Influenza Virus Vaccine Quadrival (Fluzone Quad Syringe) 0.5 ml ONCE ONCE VAX IM Last administered on 08/21/20at 09:47; Start 08/21/20 at 09:00; Stop 08/21/20 at 09:01; Status DC Info (FLU VACCINE SCREEN per RX) 1 each PRN 1X PRN MC SEE COMMENTS; Start 08/21/20 at 09:00; Status UNV Doxycycline Hyclate (Vibra-Tab) 100 mg BID PO Last administered on 08/21/20at 09:28; Start 08/21/20 at 09:00 Piperacillin Sod/ Tazobactam Sod (Zosyn Per Pharmacy) 1 each PRN DAILY PRN MC SEE COMMENTS; Start 08/21/20 at 07:15 Piperacillin Sod/ Tazobactam Sod 3.375 gm/Sodium Chloride 50 ml @ 100 mls/hr Q6HRS IV Last administered on 08/21/20at 12:38; Start 08/21/20 at 08:00 Allergies Allergies: Coded Allergies: No Known Drug Allergies (Unverified , 08/20/20) ROS General: No: Chills, Night Sweats, Fatigue, Malaise, Appetite, Other PSYCHOLOGICAL ROS: YES: Anxiety; No: Behavioral Disorder, Concentration difficultie, Decreased libido, Depression, Disorientation, Hallucinations, Hostility, Irritablity, Memory difficulties, Mood Swings, Obsessive thoughts, Physical abuse, Sexual abuse, Sleep disturbances, Suicidal ideation, Other Eyes: No Blurry vision, No Decreased vision, No Double vision, No Dry eyes, No Excessive tearing, No Eye Pain, No Itchy Eyes, No Loss of vision, No Photophobia, No Scotomata, No Uses contacts, No Uses glasses, No Other HEENT: No: Heacaches, Visual Changes, Hearing change, Nasal congestion, Nasal discharge, Oral lesions, Sinus pain, Sore Throat, Epistaxis, Sneezing, Snoring, Tinnitus, Vertigo, Vocal changes, Other ALLERGY AND IMMUNOLOGY: No: Hives, Insect Bite Sensitivity, Itchy/Watery Eyes, Nasal Congestion, Post Nasal Drip, Seasonal Allergies, Other Hematological and Lymphatic: No: Bleeding Problems, Blood Clots, Blood Transf usions, Brusing, Night Sweats, Pallor, Swollen Lymph Nodes, Other ENDOCRINE: No: Breast Changes, Galactorrhea, Hair Pattern Changes, Hot Flashes, Malaise/lethargy, Mood Swings, Palpitations, Polydipsia/polyuria, Skin Changes, Temperature Intolerance, Unexpected Weight Changes, Other Respiratory: No: Cough, Hemoptysis, Orthopnea, Pleuritic Pain, Shortness of breath, SOB with excertion, Sputum Changes, Stridor, Tachypnea, Wheezing, Other Cardiovascular: No Chest Pain, No Palpitations, No Orthopnea, No Paroxysmal Noc. Dyspnea, No Edema, No Lt Headedness, No Other Gastrointestinal: No Nausea, No Vomiting, No Abdominal Pain, No Diarrhea, No Constipation, No Melena, No Hematochezia, No Other Genitourinary: YES Other (vulvar irritation from wiping after voiding) Physical Exam General: Alert, Oriented X3, Cooperative HEENT: Atraumatic Lungs: Clear to auscultation Heart: Regular rate Abdomen: Normal bowel sounds, Soft, No tenderness, No masses, Other (no rebound tenderness or gaurding.) Extremities: No edema Skin: Other (HPV condyloma perianal area) Neuro: Normal gait Psych/Mental Status: Mental status NL Vitals VITALS Vital Signs Date Time Temp Pulse Resp B/P (MAP) Pulse Ox O2 Delivery O2 Flow Rate FiO2 08/21/20 11:00 98.2 86 16 113/59 (77) 100 Room Air 98.2 Labs Labs Laboratory Tests Test 08/20/20 13:29 08/20/20 14:10 08/20/20 14:20 08/21/20 11:19 Coronavirus (PCR) Not detected (Not Detected) Group A Streptococcus Rapid Negative (NEGATIVE) White Blood Count 20.4 x10^3/uL (4.0-11.0) 16.2 x10^3/uL (4.0-11.0) Red Blood Count 4.50 x10^6/uL (3.50-5.40) 4.13 x10^6/uL (3.50-5.40) Hemoglobin 10.9 g/dL (12.0-15.5) 10.0 g/dL (12.0-15.5) Hematocrit 33.8 % (36.0-47.0) 31.2 % (36.0-47.0) Mean Corpuscular Volume 75 fL (79-100) 75 fL (79-100) Mean Corpuscular Hemoglobin 24 pg (25-35) 24 pg (25-35) Mean Corpuscular Hemoglobin Concent 32 g/dL (31-37) 32 g/dL (31-37) Red Cell Distribution Width 16.9 % (11.5-14.5) 17.1 % (11.5-14.5) Platelet Count 385 x10^3/uL (140-400) 364 x10^3/uL (140-400) Neutrophils (%) (Auto) 95 % (31-73) 83 % (31-73) Lymphocytes (%) (Auto) 2 % (24-48) 11 % (24-48) Monocytes (%) (Auto) 2 % (0-9) 4 % (0-9) Eosinophils (%) (Auto) 0 % (0-3) 2 % (0-3) Basophils (%) (Auto) 0 % (0-3) 0 % (0-3) Neutrophils # (Auto) 19.5 x10^3/uL (1.8-7.7) 13.3 x10^3/uL (1.8-7.7) Lymphocytes # (Auto) 0.5 x10^3/uL (1.0-4.8) 1.8 x10^3/uL (1.0-4.8) Monocytes # (Auto) 0.4 x10^3/uL (0.0-1.1) 0.7 x10^3/uL (0.0-1.1) Eosinophils # (Auto) 0.0 x10^3/uL (0.0-0.7) 0.3 x10^3/uL (0.0-0.7) Basophils # (Auto) 0.0 x10^3/uL (0.0-0.2) 0.1 x10^3/uL (0.0-0.2) Segmented Neutrophils % 52 % (35-66) Band Neutrophils % 39 % (0-9) Lymphocytes % 4 % (24-48) Monocytes % 4 % (0-10) Myelocytes % 1 % (0-0) Toxic Vacuolation Slight Platelet Estimate Adequate (ADEQUATE) Hypochromasia Slight Anisocytosis Slight D-Dimer (Maryam) 3.85 ug/mlFEU (0.00-0.50) Urine Collection Type Unknown Urine Color Yellow Urine Clarity Clear Urine pH 6.0 (<5.0-8.0) Urine Specific [place] 1.010 (1.000-1.030) Urine Protein Negative mg/dL (NEG-TRACE) Urine Glucose (UA) Negative mg/dL (NEG) Urine Ketones (Stick) Negative mg/dL (NEG) Urine Blood Negative (NEG) Urine Nitrite Positive (NEG) Urine Bilirubin Negative (NEG) Urine Urobilinogen Dipstick 0.2 mg/dL (0.2 mg/dL) Urine Leukocyte Esterase Moderate (NEG) Urine RBC 0 /HPF (0-2) Urine WBC 1-4 /HPF (0-4) Urine Squamous Epithelial Cells Mod /LPF Urine Bacteria Many /HPF (0-FEW) Urine Mucus Mod /LPF Sodium Level 135 mmol/L (136-145) 140 mmol/L (136-145) Potassium Level 3.5 mmol/L (3.5-5.1) 3.7 mmol/L (3.5-5.1) Chloride Level 103 mmol/L (98-107) 106 mmol/L (98-107) Carbon Dioxide Level 22 mmol/L (21-32) 23 mmol/L (21-32) Anion Gap 10 (6-14) 11 (6-14) Blood Urea Nitrogen 10 mg/dL (7-20) 8 mg/dL (7-20) Creatinine 0.7 mg/dL (0.6-1.0) 0.7 mg/dL (0.6-1.0) Estimated GFR (Cockcroft-Gault) 97.6 97.6 BUN/Creatinine Ratio 14 (6-20) 11 (6-20) Glucose Level 91 mg/dL (70-99) 87 mg/dL (70-99) Calcium Level 9.0 mg/dL (8.5-10.1) 8.9 mg/dL (8.5-10.1) Total Bilirubin 1.1 mg/dL (0.2-1.0) 0.6 mg/dL (0.2-1.0) Aspartate Amino Transf (AST/SGOT) 22 U/L (15-37) 17 U/L (15-37) Alanine Aminotransferase (ALT/SGPT) 19 U/L (14-59) 14 U/L (14-59) Alkaline Phosphatase 76 U/L (46-116) 69 U/L (46-116) Troponin I Quantitative < 0.017 ng/mL (0.000-0.055) Total Protein 8.2 g/dL (6.4-8.2) 8.3 g/dL (6.4-8.2) Albumin 3.5 g/dL (3.4-5.0) 3.4 g/dL (3.4-5.0) Albumin/Globulin Ratio 0.7 (1.0-1.7) 0.7 (1.0-1.7) Bedside Urine HCG, Qualitative Hcg negative (Negative) Treponema pallidum Antibody Reactive (Nonreactive) Laboratory Tests Test 08/20/20 13:29 08/20/20 14:10 08/20/20 14:20 08/21/20 11:19 Coronavirus (PCR) Not detected (Not Detected) Group A Streptococcus Rapid Negative (NEGATIVE) White Blood Count 20.4 x10^3/uL (4.0-11.0) 16.2 x10^3/uL (4.0-11.0) Red Blood Count 4.50 x10^6/uL (3.50-5.40) 4.13 x10^6/uL (3.50-5.40) Hemoglobin 10.9 g/dL (12.0-15.5) 10.0 g/dL (12.0-15.5) Hematocrit 33.8 % (36.0-47.0) 31.2 % (36.0-47.0) Mean Corpuscular Volume 75 fL (79-100) 75 fL (79-100) Mean Corpuscular Hemoglobin 24 pg (25-35) 24 pg (25-35) Mean Corpuscular Hemoglobin Concent 32 g/dL (31-37) 32 g/dL (31-37) Red Cell Distribution Width 16.9 % (11.5-14.5) 17.1 % (11.5-14.5) Platelet Count 385 x10^3/uL (140-400) 364 x10^3/uL (140-400) Neutrophils (%) (Auto) 95 % (31-73) 83 % (31-73) Lymphocytes (%) (Auto) 2 % (24-48) 11 % (24-48) Monocytes (%) (Auto) 2 % (0-9) 4 % (0-9) Eosinophils (%) (Auto) 0 % (0-3) 2 % (0-3) Basophils (%) (Auto) 0 % (0-3) 0 % (0-3) Neutrophils # (Auto) 19.5 x10^3/uL (1.8-7.7) 13.3 x10^3/uL (1.8-7.7) Lymphocytes # (Auto) 0.5 x10^3/uL (1.0-4.8) 1.8 x10^3/uL (1.0-4.8) Monocytes # (Auto) 0.4 x10^3/uL (0.0-1.1) 0.7 x10^3/uL (0.0-1.1) Eosinophils # (Auto) 0.0 x10^3/uL (0.0-0.7) 0.3 x10^3/uL (0.0-0.7) Basophils # (Auto) 0.0 x10^3/uL (0.0-0.2) 0.1 x10^3/uL (0.0-0.2) Segmented Neutrophils % 52 % (35-66) Band Neutrophils % 39 % (0-9) Lymphocytes % 4 % (24-48) Monocytes % 4 % (0-10) Myelocytes % 1 % (0-0) Toxic Vacuolation Slight Platelet Estimate Adequate (ADEQUATE) Hypochromasia Slight Anisocytosis Slight D-Dimer (Maryam) 3.85 ug/mlFEU (0.00-0.50) Urine Collection Type Unknown Urine Color Yellow Urine Clarity Clear Urine pH 6.0 (<5.0-8.0) Urine Specific [place] 1.010 (1.000-1.030) Urine Protein Negative mg/dL (NEG-TRACE) Urine Glucose (UA) Negative mg/dL (NEG) Urine Ketones (Stick) Negative mg/dL (NEG) Urine Blood Negative (NEG) Urine Nitrite Positive (NEG) Urine Bilirubin Negative (NEG) Urine Urobilinogen Dipstick 0.2 mg/dL (0.2 mg/dL) Urine Leukocyte Esterase Moderate (NEG) Urine RBC 0 /HPF (0-2) Urine WBC 1-4 /HPF (0-4) Urine Squamous Epithelial Cells Mod /LPF Urine Bacteria Many /HPF (0-FEW) Urine Mucus Mod /LPF Sodium Level 135 mmol/L (136-145) 140 mmol/L (136-145) Potassium Level 3.5 mmol/L (3.5-5.1) 3.7 mmol/L (3.5-5.1) Chloride Level 103 mmol/L (98-107) 106 mmol/L (98-107) Carbon Dioxide Level 22 mmol/L (21-32) 23 mmol/L (21-32) Anion Gap 10 (6-14) 11 (6-14) Blood Urea Nitrogen 10 mg/dL (7-20) 8 mg/dL (7-20) Creatinine 0.7 mg/dL (0.6-1.0) 0.7 mg/dL (0.6-1.0) Estimated GFR (Cockcroft-Gault) 97.6 97.6 BUN/Creatinine Ratio 14 (6-20) 11 (6-20) Glucose Level 91 mg/dL (70-99) 87 mg/dL (70-99) Calcium Level 9.0 mg/dL (8.5-10.1) 8.9 mg/dL (8.5-10.1) Total Bilirubin 1.1 mg/dL (0.2-1.0) 0.6 mg/dL (0.2-1.0) Aspartate Amino Transf (AST/SGOT) 22 U/L (15-37) 17 U/L (15-37) Alanine Aminotransferase (ALT/SGPT) 19 U/L (14-59) 14 U/L (14-59) Alkaline Phosphatase 76 U/L (46-116) 69 U/L (46-116) Troponin I Quantitative < 0.017 ng/mL (0.000-0.055) Total Protein 8.2 g/dL (6.4-8.2) 8.3 g/dL (6.4-8.2) Albumin 3.5 g/dL (3.4-5.0) 3.4 g/dL (3.4-5.0) Albumin/Globulin Ratio 0.7 (1.0-1.7) 0.7 (1.0-1.7) Bedside Urine HCG, Qualitative Hcg negative (Negative) Treponema pallidum Antibody Reactive (Nonreactive) Assessment/Plan Assessment/Plan A: Ruptured Ovarian cyst: stable PERICO cyst Perianal Condyloma Complicated UTI P: Recommend repeat pelvic sono in 6 weeks to insure resolvement of PERICO cyst. Recommend Aldara cream BID to perianal condyloma. If patient remains in [place] area, then f/u in 5 weeks. Thank you for consultation. SASKIA COLLINS Jr, MD Aug 21, 2020 13:04
[2020-08-21] MEDS: HYDROCORTISONE 2.5% RECTAL CREAM 30GM TUBE. RC PRN ×2 (13:15→19:22)
[2020-08-21 15:00] VITALS: BP 117/63
[2020-08-21] MEDS: LACTOBACILLUS RHAMNOSUS GG 1 CAPSULE. PO SCH (19:21)
[2020-08-21 19:43] VITALS: BP 112/61
[2020-08-21] MEDS: IV NORMAL SALINE 1000ML BAG 1,000 ML IV SCH ×2 (20:11→20:12)
[2020-08-21] MEDS: ENOXAPARIN 40 MG/0.4 ML SYRINGE. SQ SCH (20:12)
[2020-08-21] MEDS ORDERED: IV NORMAL SALINE 500ML BAG 500 ML IV PRN (20:15)
[2020-08-21] MEDS: ZOLPIDEM 5 MG TABLET. PO PRN (22:33)
[2020-08-21 22:50] VITALS: BP 128/74
[2020-08-22] MEDS: PIPERACILLIN/TAZOBACTAM 3.375 GM in IV NORMAL SALINE 50ML 50 ML IV SCH ×5 (00:05→23:28)
[2020-08-22 03:21] VITALS: BP 93/54
[2020-08-22 03:49] LABS: BASO # 0.1 x10^3/uL (0.0-0.2); BASO % 1 % (0-3); EOS # 0.4 x10^3/uL (0.0-0.7); EOS % 4 % (0-3); HEMATOCRIT 30.1 % (36.0-47.0); HEMOGLOBIN 9.5 g/dL (12.0-15.5); LYMPH # 2.8 x10^3/uL (1.0-4.8); LYMPH % 24 % (24-48); MEAN CORPUSCULAR HEMOGLOBIN 24 pg (25-35); MEAN CORPUSCULAR HGB CONC 32 g/dL (31-37); MEAN CORPUSCULAR VOLUME 76 fL (79-100); MONO # 1.1 x10^3/uL (0.0-1.1); MONO % 10 % (0-9); NEUT # 7.3 x10^3/uL (1.8-7.7); NEUT % 62 % (31-73); PLATELET COUNT 330 x10^3/uL (140-400); RED BLOOD COUNT 3.95 x10^6/uL (3.50-5.40); RED CELL DISTRIBUTION WIDTH 17.1 % (11.5-14.5); WHITE BLOOD COUNT 11.7 x10^3/uL (4.0-11.0)
[2020-08-22 03:50] LABS: ALBUMIN/GLOBULIN RATIO 0.7 (1.0-1.7); CALCIUM 8.8 mg/dL (8.5-10.1); CREATININE 0.7 mg/dL (0.6-1.0); GFR 97.6; POTASSIUM 3.4 mmol/L (3.5-5.1); TOTAL BILIRUBIN 0.4 mg/dL (0.2-1.0); TOTAL PROTEIN 7.3 g/dL (6.4-8.2)
[2020-08-22 04:04] LABS: PROTHROMBIN TIME PATIENT 13.4 SEC (11.7-14.0)
[2020-08-22 07:00] VITALS: BP 106/68
[2020-08-22] MEDS: LACTOBACILLUS RHAMNOSUS GG 1 CAPSULE. PO SCH ×2 (09:01→21:01)
[2020-08-22] MEDS: DOXYCYCLINE HYCLATE 100 MG TABLET PO SCH ×2 (09:01→21:01)
--- NOTE | 2020-08-22 09:39 | PDOC ---
Infectious Disease Note Subjective Subjective Patient is feeling much better ROS ROS No nausea vomiting diarrhea chest pain shortness of breath Vital Sign Vital Signs Vital Signs Date Time Temp Pulse Resp B/P (MAP) Pulse Ox O2 Delivery O2 Flow Rate FiO2 08/22/20 08:00 Room Air 08/22/20 07:00 98.6 78 22 106/68 (81) 99 98.6 Physical Exam PHYSICAL EXAM CONSTITUTIONAL: She is lying down. She is comfortable. She is in no acute distress. She was sleeping on arrival. HEENT: Pupils equal and reactive. She has normal conjunctivae. Oral cavity, pharynx was clear. No signs of thrush or erythema. NECK: Supple. Good range of motion. LUNGS: Clear to auscultation bilaterally. HEART: S1, S2. ABDOMEN: Soft, flat, nondistended. EXTREMITIES: Without clubbing, cyanosis or gross edema. GENITOURINARY: Vaginal area without significant swelling. There is no gross drainage about her rectal area. She has got circumferential plaque-like lesions around her anal area. NEUROLOGIC: She is nonfocal, moves all extremities. SKIN: Without generalized signs of rash. She does have some scabs scattered throughout. NEUROLOGIC: She is nonfocal, moves all extremities. PSYCHIATRIC: Affect is appropriate. Labs Lab Laboratory Tests Test 08/21/20 11:19 08/22/20 01:20 White Blood Count 16.2 x10^3/uL (4.0-11.0) 11.7 x10^3/uL (4.0-11.0) Red Blood Count 4.13 x10^6/uL (3.50-5.40) 3.95 x10^6/uL (3.50-5.40) Hemoglobin 10.0 g/dL (12.0-15.5) 9.5 g/dL (12.0-15.5) Hematocrit 31.2 % (36.0-47.0) 30.1 % (36.0-47.0) Mean Corpuscular Volume 75 fL (79-100) 76 fL (79-100) Mean Corpuscular Hemoglobin 24 pg (25-35) 24 pg (25-35) Mean Corpuscular Hemoglobin Concent 32 g/dL (31-37) 32 g/dL (31-37) Red Cell Distribution Width 17.1 % (11.5-14.5) 17.1 % (11.5-14.5) Platelet Count 364 x10^3/uL (140-400) 330 x10^3/uL (140-400) Neutrophils (%) (Auto) 83 % (31-73) 62 % (31-73) Lymphocytes (%) (Auto) 11 % (24-48) 24 % (24-48) Monocytes (%) (Auto) 4 % (0-9) 10 % (0-9) Eosinophils (%) (Auto) 2 % (0-3) 4 % (0-3) Basophils (%) (Auto) 0 % (0-3) 1 % (0-3) Neutrophils # (Auto) 13.3 x10^3/uL (1.8-7.7) 7.3 x10^3/uL (1.8-7.7) Lymphocytes # (Auto) 1.8 x10^3/uL (1.0-4.8) 2.8 x10^3/uL (1.0-4.8) Monocytes # (Auto) 0.7 x10^3/uL (0.0-1.1) 1.1 x10^3/uL (0.0-1.1) Eosinophils # (Auto) 0.3 x10^3/uL (0.0-0.7) 0.4 x10^3/uL (0.0-0.7) Basophils # (Auto) 0.1 x10^3/uL (0.0-0.2) 0.1 x10^3/uL (0.0-0.2) Sodium Level 140 mmol/L (136-145) 140 mmol/L (136-145) Potassium Level 3.7 mmol/L (3.5-5.1) 3.4 mmol/L (3.5-5.1) Chloride Level 106 mmol/L (98-107) 107 mmol/L (98-107) Carbon Dioxide Level 23 mmol/L (21-32) 21 mmol/L (21-32) Anion Gap 11 (6-14) 12 (6-14) Blood Urea Nitrogen 8 mg/dL (7-20) 8 mg/dL (7-20) Creatinine 0.7 mg/dL (0.6-1.0) 0.7 mg/dL (0.6-1.0) Estimated GFR (Cockcroft-Gault) 97.6 97.6 BUN/Creatinine Ratio 11 (6-20) 11 (6-20) Glucose Level 87 mg/dL (70-99) 89 mg/dL (70-99) Calcium Level 8.9 mg/dL (8.5-10.1) 8.8 mg/dL (8.5-10.1) Total Bilirubin 0.6 mg/dL (0.2-1.0) 0.4 mg/dL (0.2-1.0) Aspartate Amino Transf (AST/SGOT) 17 U/L (15-37) 13 U/L (15-37) Alanine Aminotransferase (ALT/SGPT) 14 U/L (14-59) 17 U/L (14-59) Alkaline Phosphatase 69 U/L (46-116) 59 U/L (46-116) Total Protein 8.3 g/dL (6.4-8.2) 7.3 g/dL (6.4-8.2) Albumin 3.4 g/dL (3.4-5.0) 3.0 g/dL (3.4-5.0) Albumin/Globulin Ratio 0.7 (1.0-1.7) 0.7 (1.0-1.7) Treponema pallidum Antibody Reactive (Nonreactive) Prothrombin Time 13.4 SEC (11.7-14.0) Prothromb Time International Ratio 1.1 (0.8-1.1) Activated Partial Thromboplast Time 28 SEC (24-38) Fibrinogen 364 mg/dL (200-440) Micro Microbiology 08/20/20 Blood Culture - Preliminary, Resulted NO GROWTH AFTER 1 DAY Objective Assessment IMPRESSION: 1. Leukocytosis. 2. Free pelvic fluid. 3. Questionable HPV lesions on rectal area. States she had a HPV vaccine. 4. Sore throat. 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
[2020-08-22 11:00] VITALS: BP 118/68
[2020-08-22 15:00] VITALS: BP 119/83
--- NOTE | 2020-08-22 15:16 | NUR ---
SW following for discharge planning. Spoke with RN and reviewed chart. Pt from home. Pt on room air, IV Zosyn, COVID negative. Pt positive for Hep C. SW following.
--- NOTE | 2020-08-22 17:39 | PDOC ---
PROGRESS NOTES Date of Service: DATE: 08/22/20 TIME: 17:36 Chief Complaint Chief Complaint ASSESSMENT AND PLAN: Sepsis, urinary tract infection, abnormal CT imaging of the abdomen and pelvis, leukocytosis, coagulopathy with a high D-dimer, anemia, hyponatremia. 4.2 cm left ovarian cyst. Moderate pelvic free fluid, the attenuation of which is greater than simple fluid and likely due to a component of hemorrhage. There is a suspected involuting 1.5 cm right ovarian follicular cyst. 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 History of Present Illness History of Present Illness CHIEF COMPLAINT: Sore throat, weakness, congestion, possible COVID exposure. 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 she has been having flu-like symptoms for the past several days. appears she has a UTI with sepsis. She has a white count of 20,000. PYURIA NOTED. 08/22/2020 No acute events reported overnight, case discussed with nursing staff patient in no acute distress no complaints during my visit Vitals Vitals Vital Signs Date Time Temp Pulse Resp B/P (MAP) Pulse Ox O2 Delivery O2 Flow Rate FiO2 08/22/20 15:00 97.3 78 27 119/83 (95) 92 Room Air 97.3 Physical Exam Physical Exam CONSTITUTIONAL: She is lying down. She is comfortable. She is in no acute distress. She was sleeping on arrival. HEENT: Pupils equal and reactive. She has normal conjunctivae. Oral cavity, pharynx was clear. No signs of thrush or erythema. NECK: Supple. Good range of motion. LUNGS: Clear to auscultation bilaterally. HEART: S1, S2. ABDOMEN: Soft, flat, nondistended. EXTREMITIES: Without clubbing, cyanosis or gross edema. GENITOURINARY: Vaginal area without significant swelling. There is no gross drainage about her rectal area. She has got circumferential plaque-like lesions around her anal area. NEUROLOGIC: She is nonfocal, moves all extremities. SKIN: Without generalized signs of rash. She does have some scabs scattered throughout. NEUROLOGIC: She is nonfocal, moves all extremities. PSYCHIATRIC: Affect is appropriate. General: Alert, Oriented X3, Cooperative, No acute distress Heart: Regular rate Lungs: Clear Abdomen: No tenderness Extremities: No cyanosis Skin: Other (HPV condyloma perianal area) Labs LABS Laboratory Tests Test 08/22/20 01:20 White Blood Count 11.7 x10^3/uL (4.0-11.0) Red Blood Count 3.95 x10^6/uL (3.50-5.40) Hemoglobin 9.5 g/dL (12.0-15.5) Hematocrit 30.1 % (36.0-47.0) Mean Corpuscular Volume 76 fL (79-100) Mean Corpuscular Hemoglobin 24 pg (25-35) Mean Corpuscular Hemoglobin Concent 32 g/dL (31-37) Red Cell Distribution Width 17.1 % (11.5-14.5) Platelet Count 330 x10^3/uL (140-400) Neutrophils (%) (Auto) 62 % (31-73) Lymphocytes (%) (Auto) 24 % (24-48) Monocytes (%) (Auto) 10 % (0-9) Eosinophils (%) (Auto) 4 % (0-3) Basophils (%) (Auto) 1 % (0-3) Neutrophils # (Auto) 7.3 x10^3/uL (1.8-7.7) Lymphocytes # (Auto) 2.8 x10^3/uL (1.0-4.8) Monocytes # (Auto) 1.1 x10^3/uL (0.0-1.1) Eosinophils # (Auto) 0.4 x10^3/uL (0.0-0.7) Basophils # (Auto) 0.1 x10^3/uL (0.0-0.2) Prothrombin Time 13.4 SEC (11.7-14.0) Prothromb Time International Ratio 1.1 (0.8-1.1) Activated Partial Thromboplast Time 28 SEC (24-38) Fibrinogen 364 mg/dL (200-440) Sodium Level 140 mmol/L (136-145) Potassium Level 3.4 mmol/L (3.5-5.1) Chloride Level 107 mmol/L (98-107) Carbon Dioxide Level 21 mmol/L (21-32) Anion Gap 12 (6-14) Blood Urea Nitrogen 8 mg/dL (7-20) Creatinine 0.7 mg/dL (0.6-1.0) Estimated GFR (Cockcroft-Gault) 97.6 BUN/Creatinine Ratio 11 (6-20) Glucose Level 89 mg/dL (70-99) Calcium Level 8.8 mg/dL (8.5-10.1) Total Bilirubin 0.4 mg/dL (0.2-1.0) Aspartate Amino Transf (AST/SGOT) 13 U/L (15-37) Alanine Aminotransferase (ALT/SGPT) 17 U/L (14-59) Alkaline Phosphatase 59 U/L (46-116) Total Protein 7.3 g/dL (6.4-8.2) Albumin 3.0 g/dL (3.4-5.0) Albumin/Globulin Ratio 0.7 (1.0-1.7) Procalcitonin 46.88 ng/mL (0.00-0.10) Hepatitis A IgM Antibody Nonreactive (Nonreactive) Hepatitis B Surface Antigen Nonreactive (Nonreactive) Hepatitis B Core IgM Antibody Nonreactive (Nonreactive) Hepatitis C IgG Antibody Reactive (Nonreactive) HIV (1&2) Antibody Screen Nonreactive (Nonreactive) Review of Systems Review of Systems Review of systems pertinent as per HPI otherwise 14 point review of system is negative Assessment and Plan Assessmemt and Plan Problems Medical Problems: (1) Person under investigation for COVID-19 Status: Acute (2) Sepsis Status: Acute (3) UTI (urinary tract infection) Status: Acute Comment Review of Relevant I have reviewed the following items nell (where applicable) has been applied. Labs Laboratory Tests Test 08/21/20 11:19 08/22/20 01:20 White Blood Count 16.2 x10^3/uL (4.0-11.0) 11.7 x10^3/uL (4.0-11.0) Red Blood Count 4.13 x10^6/uL (3.50-5.40) 3.95 x10^6/uL (3.50-5.40) Hemoglobin 10.0 g/dL (12.0-15.5) 9.5 g/dL (12.0-15.5) Hematocrit 31.2 % (36.0-47.0) 30.1 % (36.0-47.0) Mean Corpuscular Volume 75 fL (79-100) 76 fL (79-100) Mean Corpuscular Hemoglobin 24 pg (25-35) 24 pg (25-35) Mean Corpuscular Hemoglobin Concent 32 g/dL (31-37) 32 g/dL (31-37) Red Cell Distribution Width 17.1 % (11.5-14.5) 17.1 % (11.5-14.5) Platelet Count 364 x10^3/uL (140-400) 330 x10^3/uL (140-400) Neutrophils (%) (Auto) 83 % (31-73) 62 % (31-73) Lymphocytes (%) (Auto) 11 % (24-48) 24 % (24-48) Monocytes (%) (Auto) 4 % (0-9) 10 % (0-9) Eosinophils (%) (Auto) 2 % (0-3) 4 % (0-3) Basophils (%) (Auto) 0 % (0-3) 1 % (0-3) Neutrophils # (Auto) 13.3 x10^3/uL (1.8-7.7) 7.3 x10^3/uL (1.8-7.7) Lymphocytes # (Auto) 1.8 x10^3/uL (1.0-4.8) 2.8 x10^3/uL (1.0-4.8) Monocytes # (Auto) 0.7 x10^3/uL (0.0-1.1) 1.1 x10^3/uL (0.0-1.1) Eosinophils # (Auto) 0.3 x10^3/uL (0.0-0.7) 0.4 x10^3/uL (0.0-0.7) Basophils # (Auto) 0.1 x10^3/uL (0.0-0.2) 0.1 x10^3/uL (0.0-0.2) Sodium Level 140 mmol/L (136-145) 140 mmol/L (136-145) Potassium Level 3.7 mmol/L (3.5-5.1) 3.4 mmol/L (3.5-5.1) Chloride Level 106 mmol/L (98-107) 107 mmol/L (98-107) Carbon Dioxide Level 23 mmol/L (21-32) 21 mmol/L (21-32) Anion Gap 11 (6-14) 12 (6-14) Blood Urea Nitrogen 8 mg/dL (7-20) 8 mg/dL (7-20) Creatinine 0.7 mg/dL (0.6-1.0) 0.7 mg/dL (0.6-1.0) Estimated GFR (Cockcroft-Gault) 97.6 97.6 BUN/Creatinine Ratio 11 (6-20) 11 (6-20) Glucose Level 87 mg/dL (70-99) 89 mg/dL (70-99) Calcium Level 8.9 mg/dL (8.5-10.1) 8.8 mg/dL (8.5-10.1) Total Bilirubin 0.6 mg/dL (0.2-1.0) 0.4 mg/dL (0.2-1.0) Aspartate Amino Transf (AST/SGOT) 17 U/L (15-37) 13 U/L (15-37) Alanine Aminotransferase (ALT/SGPT) 14 U/L (14-59) 17 U/L (14-59) Alkaline Phosphatase 69 U/L (46-116) 59 U/L (46-116) Total Protein 8.3 g/dL (6.4-8.2) 7.3 g/dL (6.4-8.2) Albumin 3.4 g/dL (3.4-5.0) 3.0 g/dL (3.4-5.0) Albumin/Globulin Ratio 0.7 (1.0-1.7) 0.7 (1.0-1.7) Treponema pallidum Antibody Reactive (Nonreactive) Prothrombin Time 13.4 SEC (11.7-14.0) Prothromb Time International Ratio 1.1 (0.8-1.1) Activated Partial Thromboplast Time 28 SEC (24-38) Fibrinogen 364 mg/dL (200-440) Procalcitonin 46.88 ng/mL (0.00-0.10) Hepatitis A IgM Antibody Nonreactive (Nonreactive) Hepatitis B Surface Antigen Nonreactive (Nonreactive) Hepatitis B Core IgM Antibody Nonreactive (Nonreactive) Hepatitis C IgG Antibody Reactive (Nonreactive) HIV (1&2) Antibody Screen Nonreactive (Nonreactive) Laboratory Tests Test 08/22/20 01:20 White Blood Count 11.7 x10^3/uL (4.0-11.0) Red Blood Count 3.95 x10^6/uL (3.50-5.40) Hemoglobin 9.5 g/dL (12.0-15.5) Hematocrit 30.1 % (36.0-47.0) Mean Corpuscular Volume 76 fL (79-100) Mean Corpuscular Hemoglobin 24 pg (25-35) Mean Corpuscular Hemoglobin Concent 32 g/dL (31-37) Red Cell Distribution Width 17.1 % (11.5-14.5) Platelet Count 330 x10^3/uL (140-400) Neutrophils (%) (Auto) 62 % (31-73) Lymphocytes (%) (Auto) 24 % (24-48) Monocytes (%) (Auto) 10 % (0-9) Eosinophils (%) (Auto) 4 % (0-3) Basophils (%) (Auto) 1 % (0-3) Neutrophils # (Auto) 7.3 x10^3/uL (1.8-7.7) Lymphocytes # (Auto) 2.8 x10^3/uL (1.0-4.8) Monocytes # (Auto) 1.1 x10^3/uL (0.0-1.1) Eosinophils # (Auto) 0.4 x10^3/uL (0.0-0.7) Basophils # (Auto) 0.1 x10^3/uL (0.0-0.2) Prothrombin Time 13.4 SEC (11.7-14.0) Prothromb Time International Ratio 1.1 (0.8-1.1) Activated Partial Thromboplast Time 28 SEC (24-38) Fibrinogen 364 mg/dL (200-440) Sodium Level 140 mmol/L (136-145) Potassium Level 3.4 mmol/L (3.5-5.1) Chloride Level 107 mmol/L (98-107) Carbon Dioxide Level 21 mmol/L (21-32) Anion Gap 12 (6-14) Blood Urea Nitrogen 8 mg/dL (7-20) Creatinine 0.7 mg/dL (0.6-1.0) Estimated GFR (Cockcroft-Gault) 97.6 BUN/Creatinine Ratio 11 (6-20) Glucose Level 89 mg/dL (70-99) Calcium Level 8.8 mg/dL (8.5-10.1) Total Bilirubin 0.4 mg/dL (0.2-1.0) Aspartate Amino Transf (AST/SGOT) 13 U/L (15-37) Alanine Aminotransferase (ALT/SGPT) 17 U/L (14-59) Alkaline Phosphatase 59 U/L (46-116) Total Protein 7.3 g/dL (6.4-8.2) Albumin 3.0 g/dL (3.4-5.0) Albumin/Globulin Ratio 0.7 (1.0-1.7) Procalcitonin 46.88 ng/mL (0.00-0.10) Hepatitis A IgM Antibody Nonreactive (Nonreactive) Hepatitis B Surface Antigen Nonreactive (Nonreactive) Hepatitis B Core IgM Antibody Nonreactive (Nonreactive) Hepatitis C IgG Antibody Reactive (Nonreactive) HIV (1&2) Antibody Screen Nonreactive (Nonreactive) Microbiology 08/20/20 Urine Culture - Preliminary, Resulted 08/20/20 Blood Culture - Preliminary, Resulted NO GROWTH AFTER 2 DAYS 08/20/20 Nose/Throat Culture - Preliminary, Resulted Medications Current Medications Sodium Chloride 1,000 ml @ 1,000 mls/hr Q1H IV Last administered on 08/20/20at 14:15; Start 08/20/20 at 13:30; Stop 08/20/20 at 14:29; Status DC Sodium Chloride 1,000 ml @ 1,000 mls/hr 1X ONCE IV Last administered on 08/20/20at 15:26; Start 08/20/20 at 15:00; Stop 08/20/20 at 15:59; Status DC Iohexol (Omnipaque 300 Mg/ml) 75 ml 1X ONCE IV ; Start 08/20/20 at 15:15; Stop 08/20/20 at 15:16; Status DC Info (CONTRAST GIVEN -- Rx MONITORING) 1 each PRN DAILY PRN MC SEE COMMENTS; Start 08/20/20 at 15:15; Stop 08/22/20 at 15:14; Status DC Piperacillin Sod/ Tazobactam Sod 3.375 gm/Sodium Chloride 50 ml @ 100 mls/hr 1X ONCE IV Last administered on 08/20/20at 15:29; Start 08/20/20 at 15:30; Stop 08/20/20 at 15:59; Status DC Iohexol (Omnipaque 350 Mg/ml) 75 ml 1X ONCE IV Last administered on 08/20/20at 16:16; Start 08/20/20 at 16:15; Stop 08/20/20 at 16:16; Status DC Info (CONTRAST GIVEN -- Rx MONITORING) 1 each PRN DAILY PRN MC SEE COMMENTS; Start 08/20/20 at 16:15; Stop 08/22/20 at 16:14; Status DC Zolpidem Tartrate (Ambien) 5 mg PRN QHS PRN PO INSOMNIA, MAY REPEAT X1 Last administered on 08/21/20at 22:33; Start 08/20/20 at 21:45 Diphenhydramine HCl (Benadryl) 25 mg PRN Q6HRS PRN PO ITCHING; Start 08/20/20 at 21:45 Vitamin A/Vitamin D (Vitamin A & D Ointment) 1 kemal PRN Q1HR PRN TP SKIN PROTECTION Last administered on 08/21/20at 05:08; Start 08/21/20 at 05:00 Influenza Virus Vaccine Quadrival (Fluzone Quad Syringe) 0.5 ml ONCE ONCE VAX IM Last administered on 08/21/20at 09:47; Start 08/21/20 at 09:00; Stop 08/21/20 at 09:01; Status DC Info (FLU VACCINE SCREEN per RX) 1 each PRN 1X PRN MC SEE COMMENTS; Start 08/21/20 at 09:00; Status UNV Doxycycline Hyclate (Vibra-Tab) 100 mg BID PO Last administered on 08/22/20at 09:01; Start 08/21/20 at 09:00 Piperacillin Sod/ Tazobactam Sod (Zosyn Per Pharmacy) 1 each PRN DAILY PRN MC SEE COMMENTS; Start 08/21/20 at 07:15 Piperacillin Sod/ Tazobactam Sod 3.375 gm/Sodium Chloride 50 ml @ 100 mls/hr Q6HRS IV Last administered on 08/22/20at 17:28; Start 08/21/20 at 08:00 Hydrocortisone (Proctosol-Hc) 1 kemal TID PRN RC PAIN Last administered on 08/21/20at 19:22; Start 08/21/20 at 13:15 Lactobacillus Rhamnosus (Culturelle) 1 cap BID PO Last administered on 08/22/20at 09:01; Start 08/21/20 at 21:00 Sodium Chloride 1,000 ml @ 1,000 mls/hr Q1H IV ; Start 08/21/20 at 20:15; Stop 08/21/20 at 21:40; Status DC Sodium Chloride 500 ml @ 1,000 mls/hr PRN Q30MIN PRN IV SEE COMMENTS; Start 08/21/20 at 20:15 Enoxaparin Sodium (Lovenox 40mg Syringe) 40 mg Q24H SQ Last administered on 08/21/20at 20:12; Start 08/21/20 at 21:00 Vitals/I & O Vital Sign - Last 24 Hours 08/21/20 08/21/20 08/21/20 08/22/20 19:43 20:00 22:50 03:21 Temp 98.4 98.2 98.0 98.4 98.2 98.0 Pulse 93 83 80 Resp 20 18 15 B/P (MAP) 112/61 (78) 128/74 (92) 93/54 (67) Pulse Ox 98 100 100 O2 Delivery Room Air Room Air Room Air Room Air 08/22/20 08/22/20 08/22/20 08/22/20 07:00 08:00 11:00 15:00 Temp 98.6 97.2 97.3 98.6 97.2 97.3 Pulse 78 86 78 Resp 22 13 27 B/P (MAP) 106/68 (81) 118/68 (85) 119/83 (95) Pulse Ox 99 99 92 O2 Delivery Room Air Room Air Room Air Room Air Intake and Output 08/21/20 08/21/20 08/22/20 15:00 23:00 07:00 Intake Total 340 ml 290 ml 200 ml Output Total 2 ml Balance 340 ml 290 ml 198 ml Justicifation of Admission Dx: Justifications for Admission: Justification of Admission Dx: No RASHAUN CHAVEZ MD Aug 22, 2020 17:38
[2020-08-22 19:47] VITALS: BP 116/84
[2020-08-22] MEDS: ENOXAPARIN 40 MG/0.4 ML SYRINGE. SQ SCH (21:00)
[2020-08-22] MEDS: ZOLPIDEM 5 MG TABLET. PO PRN (21:01)
[2020-08-22 23:29] VITALS: BP 130/75
[2020-08-23 03:19] VITALS: BP 118/64
[2020-08-23] MEDS: PIPERACILLIN/TAZOBACTAM 3.375 GM in IV NORMAL SALINE 50ML 50 ML IV SCH ×2 (06:02→11:28)
[2020-08-23 07:00] VITALS: BP 120/63
[2020-08-23] MEDS: LACTOBACILLUS RHAMNOSUS GG 1 CAPSULE. PO SCH (08:15)
[2020-08-23] MEDS: DOXYCYCLINE HYCLATE 100 MG TABLET PO SCH (08:15)
--- NOTE | 2020-08-23 09:50 | PDOC ---
Infectious Disease Note Subjective Subjective Patient is sleepy, no problem per RN ROS ROS no n/v/d/fever Vital Sign Vital Signs Vital Signs Date Time Temp Pulse Resp B/P (MAP) Pulse Ox O2 Delivery O2 Flow Rate FiO2 08/23/20 07:00 97.6 68 17 120/63 (82) 100 Room Air 97.6 Physical Exam PHYSICAL EXAM CONSTITUTIONAL: She is lying down. She is comfortable. She is in no acute distress. She was sleeping on arrival. HEENT: Pupils equal and reactive. She has normal conjunctivae. Oral cavity, pharynx was clear. No signs of thrush or erythema. NECK: Supple. Good range of motion. LUNGS: Clear to auscultation bilaterally. HEART: S1, S2. ABDOMEN: Soft, flat, nondistended. EXTREMITIES: Without clubbing, cyanosis or gross edema. GENITOURINARY: Vaginal area without significant swelling. There is no gross drainage about her rectal area. She has got circumferential plaque-like lesions around her anal area. NEUROLOGIC: She is nonfocal, moves all extremities. SKIN: Without generalized signs of rash. She does have some scabs scattered throughout. NEUROLOGIC: She is nonfocal, moves all extremities. PSYCHIATRIC: Affect is appropriate. Labs Micro Microbiology 08/20/20 Blood Culture - Preliminary, Resulted NO GROWTH AFTER 1 DAY Objective Assessment IMPRESSION: 1. Leukocytosis. 2. Free pelvic fluid. 3. Questionable HPV lesions on rectal area. States she had a HPV vaccine. 4. Sore throat. 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
[2020-08-23] MEDS ORDERED: PENICILLIN G BENZATHINE LA 2,400,000 UNIT/4 ML DISP.SYRIN. IM ONE (10:00)
[2020-08-23 11:00] VITALS: BP 126/67
[2020-08-23] MEDS ORDERED: AMOX1TAB61 PO (12:17)
[2020-08-23] MEDS ORDERED: DOXY100C2 PO (12:17)
--- NOTE | 2020-08-23 13:55 | NUR ---
Pt got IV taken out, unhooked from the tele monitor, and read discharge instructions. Pt knows when the follow up appt is. Pt was stable when leaving unit.
--- NOTE | 2020-08-23 14:19 | PDOC3 ---
Discharge Summary Visit Information Date of Admission: Aug 23, 2020 Date of Discharge: Aug 23, 2020 Admitting Diagnosis Comment: Sepsis, urinary tract infection, abnormal CT imaging of the abdomen and pelvis, leukocytosis, coagulopathy with a high D-dimer, anemia, hyponatremia. Final Diagnosis Problems Medical Problems: (1) Person under investigation for COVID-19 Status: Acute (2) Sepsis Status: Acute (3) UTI (urinary tract infection) Status: Acute 1. Leukocytosis. 2. Free pelvic fluid. 3. Questionable HPV lesions on rectal area. States she had a HPV vaccine. 4. Sore throat. 5 syphilis IgG positive RPR with titers pending 6 possible PID 4.2 cm left ovarian cyst. Moderate pelvic free fluid, the attenuation of which is greater than simple fl uid and likely due to a component of hemorrhage. There is a suspected involuting 1.5 cm right ovarian follicular cyst. The possibility of a ruptured hemorrhagic cyst GC Probe/syphilis/cbc comp 08-21 Brief Hospital Course Allergies Allergies Coded Allergies Type Severity Reaction Last Updated Verified No Known Drug Allergies 08/20/20 No Vital Signs Vital Signs Date Time Temp Pulse Resp B/P (MAP) Pulse Ox O2 Delivery O2 Flow Rate FiO2 08/23/20 11:00 96.4 84 17 126/67 (86) 100 Room Air 96.4 Lab Results Laboratory Tests Test 08/22/20 01:20 White Blood Count 11.7 x10^3/uL (4.0-11.0) Red Blood Count 3.95 x10^6/uL (3.50-5.40) Hemoglobin 9.5 g/dL (12.0-15.5) Hematocrit 30.1 % (36.0-47.0) Mean Corpuscular Volume 76 fL (79-100) Mean Corpuscular Hemoglobin 24 pg (25-35) Mean Corpuscular Hemoglobin Concent 32 g/dL (31-37) Red Cell Distribution Width 17.1 % (11.5-14.5) Platelet Count 330 x10^3/uL (140-400) Neutrophils (%) (Auto) 62 % (31-73) Lymphocytes (%) (Auto) 24 % (24-48) Monocytes (%) (Auto) 10 % (0-9) Eosinophils (%) (Auto) 4 % (0-3) Basophils (%) (Auto) 1 % (0-3) Neutrophils # (Auto) 7.3 x10^3/uL (1.8-7.7) Lymphocytes # (Auto) 2.8 x10^3/uL (1.0-4.8) Monocytes # (Auto) 1.1 x10^3/uL (0.0-1.1) Eosinophils # (Auto) 0.4 x10^3/uL (0.0-0.7) Basophils # (Auto) 0.1 x10^3/uL (0.0-0.2) Prothrombin Time 13.4 SEC (11.7-14.0) Prothromb Time International Ratio 1.1 (0.8-1.1) Activated Partial Thromboplast Time 28 SEC (24-38) Fibrinogen 364 mg/dL (200-440) Sodium Level 140 mmol/L (136-145) Potassium Level 3.4 mmol/L (3.5-5.1) Chloride Level 107 mmol/L (98-107) Carbon Dioxide Level 21 mmol/L (21-32) Anion Gap 12 (6-14) Blood Urea Nitrogen 8 mg/dL (7-20) Creatinine 0.7 mg/dL (0.6-1.0) Estimated GFR (Cockcroft-Gault) 97.6 BUN/Creatinine Ratio 11 (6-20) Glucose Level 89 mg/dL (70-99) Calcium Level 8.8 mg/dL (8.5-10.1) Total Bilirubin 0.4 mg/dL (0.2-1.0) Aspartate Amino Transf (AST/SGOT) 13 U/L (15-37) Alanine Aminotransferase (ALT/SGPT) 17 U/L (14-59) Alkaline Phosphatase 59 U/L (46-116) Total Protein 7.3 g/dL (6.4-8.2) Albumin 3.0 g/dL (3.4-5.0) Albumin/Globulin Ratio 0.7 (1.0-1.7) Procalcitonin 46.88 ng/mL (0.00-0.10) Hepatitis A IgM Antibody Nonreactive (Nonreactive) Hepatitis B Surface Antigen Nonreactive (Nonreactive) Hepatitis B Core IgM Antibody Nonreactive (Nonreactive) Hepatitis C IgG Antibody Reactive (Nonreactive) HIV (1&2) Antibody Screen Nonreactive (Nonreactive) Brief Hospital Course CHIEF COMPLAINT: Sore throat, weakness, congestion, possible COVID exposure. 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 she has been having flu-like symptoms for the past several days. appears she has a UTI with sepsis. She has a white count of 20,000. PYURIA NOTED. 08/22/2020 No acute events reported overnight, case discussed with nursing staff patient in no acute distress no complaints during my visit, she was seen also by Dr. Slaughter from [facility] recommendations were noted as follows: A: Ruptured Ovarian cyst: stable PERICO cyst Perianal Condyloma Complicated UTI P: Recommend repeat pelvic sono in 6 weeks to insure resolvement of PERICO cyst. Recommend Aldara cream BID to perianal condyloma. If patient remains in [place] area, then f/u in 5 weeks. Thank you for consultation. Patient responded quite well to the antibiotic therapy recommended by our infectious disease furniture sales consultant. RPR titers are still pending in the concern is for latent syphilis. Decision was made to provide the patient with the first dose of penicillin and await for the titers in the outpatient setting. She will be following up with Dr. Gee in 1 week and she will continue with oral antibiotic therapy with Augmentin and doxycycline moving forward. Counseling regarding the importance of finding a support group in order to maintain sobriety and being drug-free was encouraged to the patient. She seems to have a support system in her family and she is coming back to [place] in order to reestablish those connections. Her goal is to be able to recover custody of her 3-year-old son. General: Alert, Oriented X3, Cooperative, No acute distress Heart: Regular rate Lungs: Clear Abdomen: No tenderness Extremities: No cyanosis Skin: Other (HPV condyloma perianal area) Assessment Assessment CT abdomen and pelvis IMPRESSION: 1. Moderate pelvic free fluid, the attenuation of which is greater than simple fluid and likely due to a component of hemorrhage. There is a suspected involuting 1.5 cm right ovarian follicular cyst. The possibility of a ruptured hemorrhagic cyst is not excluded. This can be better assessed with pelvic sonography. 2. Small simple appearing renal cysts. Follow up is not routinely recommended for simple cysts. EXAM: Pelvic sonogram. HISTORY: Pelvic free fluid. Possible ruptured cyst. TECHNIQUE: Transabdominal sonographic imaging of the pelvis was performed. COMPARISON: CT obtained on the same date. FINDINGS: The uterus measures 8.0 x 5.4 x 4.3 cm. The endometrial stripe measures 7 mm. The left ovary measures 4.9 x 3.8 x 3.4 cm. The right ovary measures 3.0 x 2.1 x 2.4 cm. There is a 4.2 cm left ovarian cyst. There is moderate pelvic free fluid. IMPRESSION: 1. 4.2 cm left ovarian cyst. 2. Moderate pelvic free fluid. Discharge Information Condition at Discharge: Improved Follow Up: Weeks Disposition/Orders: D/C to Home Scheduled Amoxicillin/Potassium Clav (Augmentin 875-125 Tablet) 1 Each Tablet, 1 TAB PO BID for VB for 14 Days, #28 Ref 0 Prescribed by: RASHAUN CHAVEZ MD on 08/23/20 1217 Doxycycline Hyclate (Doxycycline Hyclate) 100 Mg Capsule, 1 CAP PO BID for VB for 14 Days, #28 Prescribed by: RASHAUN CHAVEZ MD on 08/23/20 1217 Justicifation of Admission Dx: Justifications for Admission: Justification of Admission Dx: RASHAUN Priest MD Aug 23, 2020 14:19
--- NOTE | 2020-08-23 14:38 | NUR ---
SW following for discharge planning. Spoke with RN and reviewed chart. Pt discharged home today, self-care. No SW needs on discharge.
[2020-08-23] MEDS ORDERED: AZIT500T PO (17:02)
[2020-08-24 14:13] LABS: HCV ULTRA QUANT PCR HCV Not Detected IU/mL (.)
== END 2020-08-23 13:45 | disposition home or self-care (01) | DRG 872 ==
LOC: ER 13:00 → 6 SOUTH 15:30 → MERGE 15:30 → 6 SOUTH 19:29
PROVIDERS: ADMIT Internal Medicine; ATTEND Internal Medicine
DX: A41.9 Sepsis, unspecified organism (principal); E87.1 Hypo-osmolality and hyponatremia; N39.0 Urinary tract infection, site not specified; D68.9 Coagulation defect, unspecified; F19.20 Other psychoactive substance dependence, uncomplicated; F17.210 Nicotine dependence, cigarettes, uncomplicated; F32.9 Major depressive disorder, single episode, unspecified; F41.9 Anxiety disorder, unspecified; D64.9 Anemia, unspecified; Z20.822 Contact with and (suspected) exposure to COVID-19; R65.20 Severe sepsis without septic shock; N83.202 Unspecified ovarian cyst, left side; F12.90 Cannabis use, unspecified, uncomplicated; J02.9 Acute pharyngitis, unspecified; A63.0 Anogenital (venereal) warts; A53.9 Syphilis, unspecified; N83.01 Follicular cyst of right ovary; N28.1 Cyst of kidney, acquired; Z78.9 Other specified health status; Z83.3 Family history of diabetes mellitus
CPT/HCPCS: 36415; 71045; 71275; 74177; 76856; 80053; 81001; 81025; 83605; 84145; 84484; 85007; 85025; 85379; 85384; 85610; 85730; 86592; 86703; 86705; 86709; 86803; 87040; 87070; 87077; 87086; 87186; 87340; 87491; 87522; 87591; 87880; 90471; 90686; 93005; 96361; 96365; 96366; J0561; J1650; J2543; J7030; Q9967; U0003; 99285-25; G0378